=== PATIENT | female | born 1985 | race Caucasian/White ===

== ENCOUNTER 2018-01-29 16:20 | Emergency (ER) | payer SELFPAY ==
[~2018-01-29] VITALS: Ht 162.6 cm; Wt 108.9 kg
[2018-01-29 16:38] VITALS: BP 147/74
[2018-01-29 17:05] LABS: BASO # 0.1 x10^3/uL (0.0-0.2); BASO % 1 % (0-3); EOS # 0.1 x10^3/uL (0.0-0.7); EOS % 1 % (0-3); HEMATOCRIT 42.7 % (36.0-47.0); HEMOGLOBIN 14.4 g/dL (12.0-15.5); LYMPH # 2.6 x10^3/uL (1.0-4.8); LYMPH % 24 % (24-48); MEAN CORPUSCULAR HEMOGLOBIN 29 pg (25-35); MEAN CORPUSCULAR HGB CONC 34 g/dL (31-37); MEAN CORPUSCULAR VOLUME 86 fL (79-100); MONO # 0.8 x10^3/uL (0.0-1.1); MONO % 7 % (0-9); NEUT # 7.5 x10^3uL (1.8-7.7); NEUT % 68 % (31-73); PLATELET COUNT 269 x10^3/uL (140-400); RED BLOOD COUNT 4.98 x10^6/uL (3.50-5.40); RED CELL DISTRIBUTION WIDTH 14.5 % (11.5-14.5); WHITE BLOOD COUNT 11.1 x10^3/uL (4.0-11.0)
[2018-01-29 17:19] LABS: ALBUMIN 3.5 g/dL (3.4-5.0); ALBUMIN/GLOBULIN RATIO 0.9 (1.0-1.7); CALCIUM 8.9 mg/dL (8.5-10.1); CREATININE 0.7 mg/dL (0.6-1.0); POTASSIUM 3.4 mmol/L (3.5-5.1); TOTAL BILIRUBIN 0.3 mg/dL (0.2-1.0); TOTAL PROTEIN 7.3 g/dL (6.4-8.2)
--- NOTE | 2018-01-29 18:28 | PHYS DOC ---
Past History Past Medical History: Bipolar, Depression Past Surgical History: Cholecystectomy Alcohol Use: Occasionally Drug Use: Marijuana Adult General Chief Complaint Chief Complaint: DIZZY/LIGHT HEADED HPI HPI Patient is a 32-year-old female presenting with lightheadedness as well as frequent diarrhea and occasional blood in her stool. Apparently today at work she was feeling dizzy and lightheaded she did have some blood in her stool she said there were some red blood on the toilet paper as well as some blood, mixed in with some brown stool. She does have chronic diarrhea ever since a call bladder surgery several years back. She does have intermittent abdominal cramping as well. Review of Systems Review of Systems Constitutional: hpi no fever Eyes: Denies change in visual acuity, redness, or eye pain [] HENT: Denies nasal congestion or sore throat [] No chest pain no shortness of breath. : Denies dysuria or hematuria [] Musculoskeletal: Denies back pain or joint pain [] Integument: Denies rash or skin lesions [] Neurologic: Denies headache, focal weakness or sensory changes [] Endocrine: Denies polyuria or polydipsia [] All other systems were reviewed and found to be within normal limits, except as documented in this note. Physical Exam Physical Exam Constitutional: Well developed, well nourished, no acute distress, non-toxic appearance. [] HENT: Normocephalic, atraumatic, bilateral external ears normal, oropharynx moist, no oral exudates, nose normal. [] Eyes: PERRLA, EOMI, conjunctiva normal, no discharge. [] Neck: Normal range of motion, no tenderness, supple, no stridor. [] Cardiovascular:Heart rate regular rhythm, no murmur [] Lungs & Thorax: Bilateral breath sounds clear to auscultation [] Abdomen: Bowel sounds normal, soft, mild epigastric tenderness, no masses, no pulsatile masses. [] Patient refuses rectal examination Skin: Warm, dry, no erythema, no rash. [] Back: No tenderness, no CVA tenderness. [] Extremities: No tenderness, no cyanosis, no clubbing, ROM intact, no edema. [] Neurologic: Alert and oriented X 3, normal motor function, normal sensory function, no focal deficits noted. [] Psychologic: Affect normal, judgement normal, mood normal. [] Current Patient Data Vital Signs Vital Signs Date Time Temp Pulse Resp B/P (MAP) Pulse Ox O2 Delivery O2 Flow Rate FiO2 01/29/18 16:38 98.5 96 18 97 Room Air Lab Results Laboratory Tests Test 01/29/18 16:50 White Blood Count 11.1 x10^3/uL (4.0-11.0) H Red Blood Count 4.98 x10^6/uL (3.50-5.40) Hemoglobin 14.4 g/dL (12.0-15.5) Hematocrit 42.7 % (36.0-47.0) Mean Corpuscular Volume 86 fL (79-100) Mean Corpuscular Hemoglobin 29 pg (25-35) Mean Corpuscular Hemoglobin Concent 34 g/dL (31-37) Red Cell Distribution Width 14.5 % (11.5-14.5) Platelet Count 269 x10^3/uL (140-400) Neutrophils (%) (Auto) 68 % (31-73) Lymphocytes (%) (Auto) 24 % (24-48) Monocytes (%) (Auto) 7 % (0-9) Eosinophils (%) (Auto) 1 % (0-3) Basophils (%) (Auto) 1 % (0-3) Neutrophils # (Auto) 7.5 x10^3uL (1.8-7.7) Lymphocytes # (Auto) 2.6 x10^3/uL (1.0-4.8) Monocytes # (Auto) 0.8 x10^3/uL (0.0-1.1) Eosinophils # (Auto) 0.1 x10^3/uL (0.0-0.7) Basophils # (Auto) 0.1 x10^3/uL (0.0-0.2) Maternal Serum HCG Beta Subunit < 1 mIU/mL (0-6) Sodium Level 137 mmol/L (136-145) Potassium Level 3.4 mmol/L (3.5-5.1) L Chloride Level 103 mmol/L (98-107) Carbon Dioxide Level 26 mmol/L (21-32) Anion Gap 7 (6-14) Blood Urea Nitrogen 10 mg/dL (7-20) Creatinine 0.7 mg/dL (0.6-1.0) Estimated GFR (Cockcroft-Gault) 97.0 BUN/Creatinine Ratio 14 (6-20) Glucose Level 90 mg/dL (70-99) Calcium Level 8.9 mg/dL (8.5-10.1) Total Bilirubin 0.3 mg/dL (0.2-1.0) Aspartate Amino Transferase (AST) 21 U/L (15-37) Alanine Aminotransferase (ALT) 32 U/L (14-59) Alkaline Phosphatase 91 U/L (46-116) Total Protein 7.3 g/dL (6.4-8.2) Albumin 3.5 g/dL (3.4-5.0) Albumin/Globulin Ratio 0.9 (1.0-1.7) L EKG EKG [] Radiology/Procedures Radiology/Procedures [] Course & Med Decision Making Course & Med Decision Making Pertinent Labs and Imaging studies reviewed. (See chart for details) []32-year-old fairly healthy female history of obesity status post cholecystectomy present with a complaint of some dizziness and lightheadedness in the setting of frequent diarrhea following a remote cholecystectomy and also so an episode of bright red blood per rectum today. Patient declined rectal examination differential would include most likely hemorrhoidal disease versus dietary intolerance. Labwork was unremarkable blood pressure was in the stable range patient was advised for blood pressure follow-up within 1 month. Patient was also advised on increasing fiber intake present the diagnosis of possible hemorrhoids because she did not did not want me to do a rectal examination. She was encouraged to follow up with primary care doctor for GI referral should the symptoms continue. Return precautions were advised and she voiced understanding of the instructions. Dragon Disclaimer Dragon Disclaimer This electronic medical record was generated, in whole or in part, using a voice recognition dictation system. Departure Departure: Impression: Primary Impression: Dizziness Disposition: HOME, SELF-CARE Condition: STABLE Patient Instructions: Rectal Bleeding, [id number] PUENET RODRIGUEZ MD Jan 29, 2018 18:28
== END 2018-01-29 18:13 | disposition home or self-care (01) ==
LOC: ER 16:20
DX: R42 Dizziness and giddiness (principal); R19.7 Diarrhea, unspecified; K92.1 Melena; F31.9 Bipolar disorder, unspecified; Z90.49 Acquired absence of other specified parts of digestive tract
CPT/HCPCS: 36415; 80053; 84702; 85025; 99284

== ENCOUNTER 2018-01-31 14:48 | Emergency (ER) | payer SELFPAY ==
[~2018-01-31] VITALS: Ht 162.6 cm; Wt 108.9 kg
[2018-01-31] MEDS ORDERED: KETOROLAC 60 MG/2 ML VIAL. IM ONE (15:15)
--- NOTE | 2018-01-31 15:21 | RAD ---
EXAM: Right foot, 3 views. HISTORY: Pain. COMPARISON: None. FINDINGS: Frontal, lateral and oblique views of the right foot are obtained. There is no fracture, dislocation or subluxation. There is a tiny plantar spur. There is a 3 mm benign osseous excrescence along the medial aspect of the second proximal phalanx. IMPRESSION: No acute osseous finding. Electronically signed by: Pat Alejandre MD (01/31/2018 3:18 PM) [facility] [place]
[2018-01-31] MEDS ORDERED: Percogesic PO (15:37)
--- NOTE | 2018-01-31 15:38 | PHYS DOC ---
Past History Past Medical History: Bipolar, Depression Past Surgical History: Cholecystectomy, Tonsillectomy, Tubal ligation Alcohol Use: Occasionally Drug Use: Marijuana Adult General Chief Complaint Chief Complaint: FOOT INJURY PAIN HPI HPI 32-year-old female patient states she had right foot fracture previously and just started a new job one week ago that has to walk frequently and complaining of right foot pain and swelling since yesterday that did not get better with taking [id number] Tylenol. Patient rated her pain 8/10 and denies focal neuro deficit and fever and chills. Review of Systems Review of Systems Constitutional: Denies fever or chills [] Eyes: Denies change in visual acuity, redness, or eye pain [] HENT: Denies nasal congestion or sore throat [] Respiratory: Denies cough or shortness of breath [] Cardiovascular: No additional information not addressed in HPI [] GI: Denies abdominal pain, nausea, vomiting, bloody stools or diarrhea [] : Denies dysuria or hematuria [] Musculoskeletal: Denies back pain, reports joint pain [] Integument: Denies rash or skin lesions [] Neurologic: Denies headache, focal weakness or sensory changes [] Endocrine: Denies polyuria or polydipsia [] All other systems were reviewed and found to be within normal limits, except as documented in this note. Current Medications Current Medications Current Medications Medications (Trade) Dose Ordered Sig/Pantera Start Time Stop Time Status Last Admin Dose Admin Ketorolac Tromethamine (Toradol Im) 60 mg 1X ONCE 01/31/18 15:15 01/31/18 15:16 DC 01/31/18 15:28 60 MG Allergies Allergies Allergies Coded Allergies Type Severity Reaction Last Updated Verified ibuprofen Allergy Unknown 01/31/18 Yes Physical Exam Physical Exam Constitutional: Well nourished, no acute distress, non-toxic appearance. [] HENT: Normocephalic, atraumatic Eyes: PERRLA, EOMI, conjunctiva normal, no discharge. [] Neck: Normal range of motion, no tenderness, supple, no stridor. [] Cardiovascular:Heart rate regular rhythm, no murmur [] Lungs & Thorax: Bilateral breath sounds clear to auscultation [] Extremities: Left foot without deformity or sign of injury, mild tenderness and edema of proximal 2nd and 3rd metatarsal area , no cyanosis, no clubbing.] Neurologic: Alert and oriented X 3, normal motor function, normal sensory function, no focal deficits noted. [] Psychologic: Affect anxious, judgement normal, mood normal. [] Current Patient Data Vital Signs Vital Signs Date Time Temp Pulse Resp B/P (MAP) Pulse Ox O2 Delivery O2 Flow Rate FiO2 01/31/18 15:00 98.1 102 18 98 Room Air EKG EKG [] Radiology/Procedures Radiology/Procedures [[address] [address] IMAGING REPORT Signed PATIENT: UCHE MAN ACCOUNT: [id number] : 1985 LOCATION: ER AGE: 32 SEX: F EXAM STATUS: PRE ER ORD. PHYSICIAN: ISRAEL ACEVEDO MD REASON: pain, no injury PROCEDURE: FOOT RIGHT 3V EXAM: Right foot, 3 views. HISTORY: Pain. COMPARISON: None. FINDINGS: Frontal, lateral and oblique views of the right foot are obtained. There is no fracture, dislocation or subluxation. There is a tiny plantar spur. There is a 3 mm benign osseous excrescence along the medial aspect of the second proximal phalanx. IMPRESSION: No acute osseous finding. Electronically signed by: Pat Alejandre MD (01/31/2018 3:18 PM) [facility] [place] DICTATED AND SIGNED BY: PAT ALEJANDRE MD DATE: 01/31/18 8354 CC: ISRAEL ACEVEDO MD; PCP,NO ~ ] Course & Med Decision Making Course & Med Decision Making Pertinent Imaging studies reviewed. (See chart for details) Jonatan wrap applied by [employer] . [] Dragon Disclaimer Dragon Disclaimer This electronic medical record was generated, in whole or in part, using a voice recognition dictation system. Departure Departure: Impression: Primary Impression: Right foot sprain Additional Impressions: Tobacco abuse counseling Tobacco abuse Disposition: HOME, SELF-CARE (At 1533) Condition: IMPROVED Referrals: PCP,NO (PCP) Patient Instructions: Foot Sprain Additional Instructions: Apply ice on the affected area Follow-up with your primary care physician in 3-5 days Return to ER if not getting better Scripts [Percogesic] No Conflict Check 1 TAB PO QID PRN for PAIN, #14 Prov: ISRAEL ACEVEDO MD 01/31/18 Problem Qualifiers ISRAEL ACEVEDO MD Jan 31, 2018 15:38
[2018-01-31 15:40] VITALS: BP 123/73
== END 2018-01-31 15:42 | disposition home or self-care (01) ==
LOC: ER 14:48
DX: S93.601A Unspecified sprain of right foot, initial encounter (principal); F31.9 Bipolar disorder, unspecified; Z72.0 Tobacco use; Z71.6 Tobacco abuse counseling; Z88.6 Allergy status to analgesic agent; X50.9XXA Other and unspecified overexertion or strenuous movements or postures, initial encounter; Y93.01 Activity, walking, marching and hiking; Y99.8 Other external cause status; Y92.89 Other specified places as the place of occurrence of the external cause
CPT/HCPCS: 73630; 96372; 99284; J1885

== ENCOUNTER 2018-04-08 16:36 | Emergency (ER) | payer SELFPAY ==
[~2018-04-08] VITALS: Ht 162.6 cm; Wt 108.9 kg
[~2018-04-08 16:36] MED LIST: Percogesic PO
[2018-04-08 16:50] VITALS: BP 123/66
[2018-04-08] MEDS ORDERED: HYDROcodone/APAP 5/325MG 1 TAB TABLET PO ONE (18:00)
[2018-04-08] MEDS ORDERED: DIPHTH,PERTUSS(ACELL),TET TOX 0.5 ML DISP.SYRIN. VAX IM ONE (18:00)
[2018-04-08] MEDS ORDERED: ACET-704 PO (18:24)
[2018-04-08] MEDS ORDERED: SILV20CR14 TP (18:24)
--- NOTE | 2018-04-08 18:24 | PHYS DOC ---
Past History Past Medical History: Bipolar, Depression Past Surgical History: Cholecystectomy, Tonsillectomy, Tubal ligation Alcohol Use: Occasionally Drug Use: Marijuana Adult General Chief Complaint Chief Complaint: BURN/SMOKE INHALATION HPI HPI Patient is a 32-year-old female patient with complaining of burn to left forearm And 5 days ago and had pain and did not in affected area and called Nurse line and recommended coming to emergency room. Patient denies fever and chills, focal neuro deficit. Patient is not up-to-date with tetanus immunization Review of Systems Review of Systems Constitutional: Denies fever or chills [] Eyes: Denies change in visual acuity, redness, or eye pain [] HENT: Denies nasal congestion or sore throat [] Respiratory: Denies cough or shortness of breath [] Cardiovascular: No additional information not addressed in HPI [] GI: Denies abdominal pain, nausea, vomiting, bloody stools or diarrhea [] : Denies dysuria or hematuria [] Musculoskeletal: Denies back pain or joint pain [] Integument: Denies rash or skin lesions [] Neurologic: Denies headache, focal weakness or sensory changes [] Endocrine: Denies polyuria or polydipsia [] All other systems were reviewed and found to be within normal limits, except as documented in this note. Current Medications Current Medications Current Medications Medications (Trade) Dose Ordered Sig/Pantera Start Time Stop Time Status Last Admin Dose Admin Acetaminophen/ Hydrocodone Bitart (Lortab 5/325) 1 tab 1X ONCE 04/08/18 18:00 04/08/18 18:01 DC 04/08/18 18:00 1 TAB Diphtheria/ Tetanus/Acell Pertussis (Boostrix) 0.5 ml ONCE ONCE 04/08/18 18:00 04/08/18 18:01 DC 04/08/18 18:03 0.5 ML Allergies Allergies Allergies Coded Allergies Type Severity Reaction Last Updated Verified ibuprofen Allergy Unknown 01/31/18 Yes Physical Exam Physical Exam Constitutional: Well developed, well nourished, no acute distress, non-toxic appearance. [] HENT: Normocephalic, atraumatic Eyes: PERRLA, EOMI, conjunctiva normal, no discharge. [] Neck: Normal range of motion, no tenderness, supple, no stridor. [] Cardiovascular:Heart rate regular rhythm, no murmur [] Lungs & Thorax: Bilateral breath sounds clear to auscultation [] Skin: Warm, dry, no rash, 5 x 5 cm second degree burn to left forearm without sign of infection or palpated mass or abscess. [] Back: No tenderness, no CVA tenderness. [] Extremities: No tenderness, no cyanosis, no clubbing, ROM intact, no edema. [] Neurologic: Alert and oriented X 3, normal motor function, normal sensory function, no focal deficits noted. [] Current Patient Data Vital Signs Vital Signs Date Time Temp Pulse Resp B/P (MAP) Pulse Ox O2 Delivery O2 Flow Rate FiO2 04/08/18 18:00 16 EKG EKG [] Radiology/Procedures Radiology/Procedures [] Course & Med Decision Making Course & Med Decision Making discharge: I've spoken with the patient and/or caregivers. I've explained the patient's condition, diagnosis and treatment plan based on information available to me at this time. I've answered the patient's and/or caregivers questions and addressed any concerns. The patient and/or caregivers have a good understanding the patient's diagnosis, condition and treatment plan as can be expected at this point. Vital signs have been stabilized. The patient's condition is stable for discharge from the emergency department. The patient will pursue further outpatient evaluation with her primary care provider or other designated consulting physician as outlined in the discharge instructions. Patient and/or caregivers are agreeable to this plan of care and follow-up instructions have been explained in detail. The patient and/or caregivers have received these instructions in written format and expressed understanding of these discharge instructions. The patient and her caregivers are aware that if any significant change in condition or worsening of symptoms should prompt him to immediately return to this of the closest emergency department. If an emergent department is not readily available I would encourage him to call 911. Denisha Disclaimer Dragon Disclaimer This electronic medical record was generated, in whole or in part, using a voice recognition dictation system. Departure Departure: Impression: Primary Impression: Second degree burn of arm Disposition: HOME, SELF-CARE (at 1822) Condition: STABLE Referrals: PCP,NO (PCP) Patient Instructions: Burn Care, [id number] Scripts Acetaminophen With Codeine (TYLENOL WITH CODEINE #3 TABLET) 1 Each Tablet 1 TAB PO BID, #6 TAB Prov: ISRAEL ACEVEDO MD 04/08/18 Silver Sulfadiazine (SILVADENE) 20 Gm Cream..g. 1 BRENNON TP DAILY, #50 GM Prov: ISRAEL ACEVEDO MD 04/08/18 ISRAEL ACEVEDO MD Apr 08, 2018 18:24
== END 2018-04-08 18:30 | disposition home or self-care (01) ==
LOC: ER 16:36
DX: T22.212A Burn of second degree of left forearm, initial encounter (principal); Z88.6 Allergy status to analgesic agent; X19.XXXA Contact with other heat and hot substances, initial encounter; Y93.89 Activity, other specified; Y92.89 Other specified places as the place of occurrence of the external cause; Y99.0 Civilian activity done for income or pay
CPT/HCPCS: 90471; 90715; 99283-25

== ENCOUNTER 2018-04-22 00:04 | Emergency (ER) | payer SELFPAY ==
[~2018-04-22] VITALS: Ht 162.6 cm; Wt 99.8 kg
[2018-04-22 00:04] VITALS: BP 122/71
[~2018-04-22 00:04] MED LIST changes: +ACET-704 PO; +SILV20CR14 TP
--- NOTE | 2018-04-22 00:32 | ED.ADGEN ---
Past History Past Medical History: No Pertinent History, Bipolar, Depression Past Surgical History: Cholecystectomy, , Tonsillectomy, Tubal ligation Alcohol Use: Occasionally Drug Use: Marijuana Adult General Chief Complaint Chief Complaint right hand pain [facility] This is a very pleasant 32 years old female who presented to the emergency department with right thumb pain after a fall that happened a week ago she was seen and evaluated by another facility x-rays was done she was told she had she does not have any fracture and it's just the finger sprain hand was placed in thumb spica she was advised to follow-up with orthopedic surgery patient is here in the emergency department complaining of her hands not any better and wondered whether there is any fracture. Review of Systems Review of Systems Constitutional: Denies fever or chills [] Eyes: Denies change in visual acuity, redness, or eye pain [] HENT: Denies nasal congestion or sore throat [] Respiratory: Denies cough or shortness of breath [] Cardiovascular: No additional information not addressed in HPI [] GI: Denies abdominal pain, nausea, vomiting, bloody stools or diarrhea [] : Denies dysuria or hematuria [][] Integument: Denies rash or skin lesions [] Neurologic: Denies headache, focal weakness or sensory changes [] Endocrine: Denies polyuria or polydipsia [] All other systems were reviewed and found to be within normal limits, except as documented in this note. Allergies Allergies Allergies Coded Allergies Type Severity Reaction Last Updated Verified ibuprofen Allergy Unknown 01/31/18 Yes Physical Exam Physical Exam Constitutional: Well developed, well nourished, no acute distress, non-toxic appearance. [] HENT: Normocephalic, atraumatic, bilateral external ears normal, oropharynx moist, no oral exudates, nose normal. [] Eyes: PERRLA, EOMI, conjunctiva normal, no discharge. [] Neck: Normal range of motion, no tenderness, supple, no stridor. [] Cardiovascular:Heart rate regular rhythm, no murmur [] Lungs & Thorax: Bilateral breath sounds clear to auscultation [] Abdomen: Bowel sounds normal, soft, no tenderness, no masses, no pulsatile masses. [] Skin: Warm, dry, no erythema, no rash. [] Back: No tenderness, no CVA tenderness. [] Extremities: Tender right thumb limited movement minimal swelling[] Neurologic: Alert and oriented X 3, normal motor function, normal sensory function, no focal deficits noted. [] Psychologic: Affect normal, judgement normal, mood normal. [] Current Patient Data Vital Signs Vital Signs Date Time Temp Pulse Resp B/P (MAP) Pulse Ox O2 Delivery O2 Flow Rate FiO2 04/22/18 00:04 98.4 111 20 96 EKG EKG [] Radiology/Procedures Radiology/Procedures no fracture[] Course & Med Decision Making Course & Med Decision Making Pertinent Labs and Imaging studies reviewed. (See chart for details) [] Final Impression Final Impression I did very lengthy discussion with the patient regarding her diagnoses advised the patient follow up with hand surgery advised her to keep wearing the splint thumb spica also advised her to keep taking ibuprofen for pain management. [] Problems: (1) Sprain of right thumb Qualifiers: Dragon Disclaimer Dragon Disclaimer This electronic medical record was generated, in whole or in part, using a voice recognition dictation system. MACKENZIE MILTON MD Apr 22, 2018 00:32
--- NOTE | 2018-04-22 02:31 | RAD ---
Right hand 3 views: Reason for examination: Fell with pain and swelling. No acute fracture or dislocation is seen. The bone density is normal. There appears to be some bony hypertrophy at the base of the distal phalanx at the distal interphalangeal joint of the middle finger. No abnormal periosteal reaction is seen. Joint spaces are maintained. IMPRESSION: No acute bony abnormality in the right hand. Electronically signed by: Amara Rocha MD (04/22/2018 2:28 AM) [facility] [place]
== END 2018-04-22 00:50 | disposition home or self-care (01) ==
LOC: ER 00:04
DX: S63.601A Unspecified sprain of right thumb, initial encounter (principal); Z88.6 Allergy status to analgesic agent; W19.XXXA Unspecified fall, initial encounter; Y93.89 Activity, other specified; Y92.89 Other specified places as the place of occurrence of the external cause; Y99.8 Other external cause status
CPT/HCPCS: 73130; 99284

== ENCOUNTER 2020-02-08 16:53 | Emergency (ER) | payer SELFPAY ==
[~2020-02-08] VITALS: Ht 162.6 cm; Wt 100.0 kg
--- NOTE | 2020-02-08 17:29 | PHYS DOC ---
Past History Past Medical History: No Pertinent History Past Surgical History: Tonsillectomy, Tubal ligation Additional Past Surgical Histo: hernia repair Alcohol Use: Occasionally Drug Use: Marijuana General Adult EDM: Chief Complaint: ABDOMINAL PAIN HPI: HPI: The history was obtained from the patient. Patient is a 34-year-old female with PMH tubal ligation, tobacco abuse who presents with a chief complaint of suprapubic abdominal pain. Patient states the pain began gradually 4 hours prior to arrival. States she was walking in the grocery store the pain began. States pain is sharp in nature and seems to be progressively worsening. States is located in her suprapubic region. States pain is nonradiating. She denies any nausea or vomiting. She denies any vaginal bleeding or discharge. States first it was worse. 2 weeks ago. She has a history of tubal ligation denies any history of ovarian cyst. She denies any dysuria or hematuria. She notes surgical history of abdominal ventral hernia repairs in the past. She denies any changes to her stool caliber or consistency. She denies any syncope. Tylenol at home with minimal relief. No other complaints. Review of Systems: Review of Systems: Constitutional: Denies fever or chills Eyes: Denies change in visual acuity HENT: Denies nasal congestion or sore throat Respiratory: Denies cough or shortness of breath Cardiovascular: Denies chest pain or edema GI: Positive for abdominal pain : Denies dysuria Musculoskeletal: Denies back pain or joint pain Integument: Denies rash Neurologic: Denies headache, focal weakness or sensory changes Endocrine: Denies polyuria or polydipsia Lymphatic: Denies swollen glands Psychiatric: Denies depression or anxiety Heart Score: Risk Factors: Risk Factors: DM, Current or recent (<one month) smoker, HTN, HLP, family history of CAD, obesity. Risk Scores: Score 0 - 3: 2.5% MACE over next 6 weeks - Discharge Home Score 4 - 6: 20.3% MACE over next 6 weeks - Admit for Clinical Observation Score 7 - 10: 72.7% MACE over next 6 weeks - Early Invasive Strategies Allergies: Allergies: Allergies Coded Allergies Type Severity Reaction Last Updated Verified ibuprofen Allergy Unknown 02/08/20 Yes Physical Exam: PE: Constitutional: Well developed, well nourished, no acute distress, non-toxic appearance. [] HENT: Normocephalic, atraumatic, bilateral external ears normal, oropharynx moist, nose normal. [] Eyes: PERRLA, EOMI, conjunctiva normal, no discharge. [] Neck: Normal range of motion, no tenderness, supple, no stridor. [] Cardiovascular: Heart rate regular rhythm, no murmur [] Lungs & Thorax: Bilateral breath sounds clear to auscultation [] Abdomen: Soft, nontender, nonacute abdomen. No involuntary guarding or rigidity noted. No acute peritonitis. Skin: Warm, dry, no erythema, no rash. [] Back: No tenderness, no CVA tenderness. [] Extremities: No tenderness, no cyanosis, no clubbing, ROM intact, no edema. [] Neurologic: Alert and oriented X 3, normal motor function, normal sensory function, no focal deficits noted. [] Psychologic: Affect normal, judgement normal, mood normal. [] Current Patient Data: Labs: Laboratory Tests Test 02/08/20 17:10 White Blood Count 11.3 x10^3/uL Red Blood Count 4.77 x10^6/uL Hemoglobin 14.0 g/dL Hematocrit 41.4 % Mean Corpuscular Volume 87 fL Mean Corpuscular Hemoglobin 29 pg Mean Corpuscular Hemoglobin Concent 34 g/dL Red Cell Distribution Width 14.0 % Platelet Count 262 x10^3/uL Neutrophils (%) (Auto) 58 % Lymphocytes (%) (Auto) 33 % Monocytes (%) (Auto) 7 % Eosinophils (%) (Auto) 1 % Basophils (%) (Auto) 1 % Neutrophils # (Auto) 6.6 x10^3uL Lymphocytes # (Auto) 3.7 x10^3/uL Monocytes # (Auto) 0.8 x10^3/uL Eosinophils # (Auto) 0.1 x10^3/uL Basophils # (Auto) 0.1 x10^3/uL Urine Collection Type Unknown Urine Color Yellow Urine Clarity Hazy Urine pH 6.5 Urine Specific [place] >=1.030 Urine Protein Neg Urine Glucose (UA) Neg mg/dL Urine Ketones (Stick) Neg mg/dL Urine Blood Neg Urine Nitrite Neg Urine Bilirubin Neg Urine Urobilinogen Dipstick 0.2 mg/dL Urine Leukocyte Esterase Neg Urine RBC 3-5 /HPF Urine WBC 5-10 /HPF Urine Squamous Epithelial Cells Many /LPF Urine Bacteria Few /HPF Urine Mucus Mod /LPF Urine Test Negative Sodium Level 137 mmol/L Potassium Level 3.5 mmol/L Chloride Level 101 mmol/L Carbon Dioxide Level 29 mmol/L Anion Gap 7 Blood Urea Nitrogen 7 mg/dL Creatinine 1.0 mg/dL Estimated GFR (Cockcroft-Gault) 63.5 BUN/Creatinine Ratio 7 Glucose Level 89 mg/dL Calcium Level 8.7 mg/dL Total Bilirubin 0.2 mg/dL Aspartate Amino Transf (AST/SGOT) 18 U/L Alanine Aminotransferase (ALT/SGPT) 32 U/L Alkaline Phosphatase 87 U/L Total Protein 7.7 g/dL Albumin 3.5 g/dL Albumin/Globulin Ratio 0.8 Lipase 139 U/L Current Medications Medications (Trade) Dose Ordered Sig/Pantera Route PRN Reason Start Time Stop Time Status Last Admin Dose Admin Morphine Sulfate (Morphine 4mg Syringe) 4 mg 1X ONCE IV 02/08/20 17:30 02/08/20 17:31 DC 02/08/20 17:43 Vital Signs: Vital Signs Date Time Temp Pulse Resp B/P (MAP) Pulse Ox O2 Delivery O2 Flow Rate FiO2 02/08/20 18:39 94 16 139/88 (105) 98 Room Air 02/08/20 17:43 16 98 Room Air 02/08/20 16:53 98.3 111 16 119/66 (83) 97 Room Air Vital Signs Date Time Temp Pulse Resp B/P (MAP) Pulse Ox O2 Delivery O2 Flow Rate FiO2 02/08/20 16:53 98.3 111 16 119/66 (83) 97 Room Air EKG: EKG: [] Radiology/Procedures: Radiology/Procedures: [][address] [address] IMAGING REPORT Signed PATIENT: UCHE MAN ACCOUNT: [id number] : 1985 LOCATION: ER AGE: 34 SEX: F EXAM STATUS: REG ER ORD. PHYSICIAN: BIN COLIN DO REASON: suprapubic pain. eval for torsion vs. cyst PROCEDURE: PELVIS COMPLETE PELVIS COMPLETE History: Reason: suprapubic pain. eval for torsion vs. cyst / Spl. Instructions: / History: Comparison: None. Technique: Grayscale and color Doppler imaging of the pelvis was performed using transabdominal technique. Findings: The uterus measures 8.5 x 5.3 x 4.6 cm. Uterus has an unremarkable appearance. The endometrial stripe measures 6.5 mm. Right ovary measures 2.6 x 2.6 x 1.9 cm. Left ovary measures 2.2 x 2.6 x 1.9 cm. Normal Doppler flow to the ovaries. No adnexal masses are seen. IMPRESSION: 1. Unremarkable pelvic ultrasound. Electronically signed by: Robert Arnold DO (02/08/2020 6:40 PM) [facility] DICTATED AND SIGNED BY: ROBERT ARNOLD DO DATE: 02/08/201839 CC: SHELBY CARRANZA; BIN COLIN DO ~ Course & Med Decision Making: Course & Med Decision Making Pertinent Labs and Imaging studies reviewed. (See chart for details) Patient is a well-appearing 34-year-old female who presents with chief complaint of suprapubic abdominal cramping. Initial vital signs notable for mild tachycardia. Laboratory analysis was obtained and was grossly unremarkable. Mild leukocytosis at 11,000. Urinalysis does not show nell evidence of infection. Remainder of labs unremarkable. Transabdominal ultrasound was obtained and showed no signs of ovarian torsion or ovarian cyst. Pelvic exam was deferred given she denies any vaginal bleeding or discharge. Repeat abdominal examination her abdomen remains benign. Vital signs have improved. She remains afebrile and is tolerating p.o. in the emergency department. I do feel is reasonable to defer CAT scan imaging at this time. Patient is agreeable to this. She was given strict 24 to 48-hour return precautions. She was in structed to follow-up with her primary care physician in the next 2 to 3 days. She will be discharged home with Bentyl and Zofran. Stable for discharge home. Denisha Disclaimer: Denisha Disclaimer: This electronic medical record was generated, in whole or in part, using a voice recognition dictation system. Departure Departure: Disposition: 01 HOME/RESIDENCE PRIOR TO ADM Condition: GOOD Referrals: PCP,SHELBY (PCP) Patient Instructions: Abdominal Pain Additional Instructions: Please return emergency department 24 to 48 hours if her symptoms do not improve or worsen. Please follow-up with your primary care physician in the next 2 to 3 days. Scripts Dicyclomine Hcl (DICYCLOMINE HCL) 10 Mg Capsule 1 CAP PO TID PRN for PAIN, #16 CAP 0 Refills Prov: BIN COLIN DO 02/08/20 Ondansetron Hcl (ZOFRAN) 8 Mg Tablet 4 MG PO TID PRN PRN for NAUSEA, #9 TAB Prov: BIN COLIN DO 02/08/20 Justification of Admission: Justification of Admission: Justification of Admission Dx: N/A BIN COLIN DO Feb 08, 2020 17:29
[2020-02-08] MEDS ORDERED: MORPHINE SULFATE 4 MG/ML DISP.SYRIN. IV ONE (17:30)
[2020-02-08 17:31] LABS: BASO # 0.1 x10^3/uL (0.0-0.2); BASO % 1 % (0-3); EOS # 0.1 x10^3/uL (0.0-0.7); EOS % 1 % (0-3); HEMATOCRIT 41.4 % (36.0-47.0); LYMPH # 3.7 x10^3/uL (1.0-4.8); LYMPH % 33 % (24-48); MEAN CORPUSCULAR HEMOGLOBIN 29 pg (25-35); MEAN CORPUSCULAR HGB CONC 34 g/dL (31-37); MEAN CORPUSCULAR VOLUME 87 fL (79-100); MONO # 0.8 x10^3/uL (0.0-1.1); MONO % 7 % (0-9); NEUT # 6.6 x10^3uL (1.8-7.7); NEUT % 58 % (31-73); PLATELET COUNT 262 x10^3/uL (140-400); RED BLOOD COUNT 4.77 x10^6/uL (3.50-5.40); WHITE BLOOD COUNT 11.3 x10^3/uL (4.0-11.0)
[2020-02-08 17:37] LABS: CALCIUM 8.7 mg/dL (8.5-10.1); GFR 63.5; POTASSIUM 3.5 mmol/L (3.5-5.1)
[2020-02-08 17:43] LABS: ALBUMIN 3.5 g/dL (3.4-5.0); ALBUMIN/GLOBULIN RATIO 0.8 (1.0-1.7); TOTAL BILIRUBIN 0.2 mg/dL (0.2-1.0); TOTAL PROTEIN 7.7 g/dL (6.4-8.2)
[2020-02-08 17:51] LABS: U PREG PATIENT NEGATIVE (NEG)
[2020-02-08 18:05] LABS: BACTERIA,URINE FEW /HPF (0-FEW); BILIRUBIN,URINE NEG (NEG); CLARITY,URINE HAZY; COLOR,URINE YELLOW; GLUCOSE,URINE NEG (NEG); NITRITE,URINE NEG (NEG); UROBILINOGEN,URINE 0.2 mg/dL (0.2 mg/dL)
[2020-02-08 18:06] LABS: SQUAMOUS EPITHELIAL CELL,UR MANY /LPF
[2020-02-08 18:39] VITALS: BP 139/88
--- NOTE | 2020-02-08 18:43 | RAD ---
PELVIS COMPLETE History: Reason: suprapubic pain. eval for torsion vs. cyst / Spl. Instructions: / History: Comparison: None. Technique: Grayscale and color Doppler imaging of the pelvis was performed using transabdominal technique. Findings: The uterus measures 8.5 x 5.3 x 4.6 cm. Uterus has an unremarkable appearance. The endometrial stripe measures 6.5 mm. Right ovary measures 2.6 x 2.6 x 1.9 cm. Left ovary measures 2.2 x 2.6 x 1.9 cm. Normal Doppler flow to the ovaries. No adnexal masses are seen. IMPRESSION: 1. Unremarkable pelvic ultrasound. Electronically signed by: Robert Arnold DO (02/08/2020 6:40 PM) [facility]
[2020-02-08] MEDS ORDERED: ONDA8TAB9 PO (18:59)
[2020-02-08] MEDS ORDERED: DICY10CA3 PO (18:59)
== END 2020-02-08 19:15 | disposition home or self-care (01) ==
LOC: ER 16:53
DX: R10.30 Lower abdominal pain, unspecified (principal); Z98.51 Tubal ligation status; Z72.0 Tobacco use; Z88.6 Allergy status to analgesic agent
CPT/HCPCS: 36415; 76856; 80053; 81001; 81025; 83690; 85025; 87086; 96374; 99284; J2270

== ENCOUNTER 2020-04-01 22:01 | Inpatient (IN) | payer SELFPAY ==
[~2020-04-01] VITALS: Ht 162.6 cm; Wt 104.6 kg
[~2020-04-01 22:01] MED LIST changes: +DICY10CA3 PO; +ONDA8TAB9 PO
--- NOTE | 2020-04-01 22:07 | PHYS DOC ---
Past History Past Medical History: No Pertinent History, Alcoholism, Bipolar, Depression Past Surgical History: Tonsillectomy, Tubal ligation Additional Past Surgical Histo: hernia repair Alcohol Use: Occasionally Drug Use: Marijuana General Adult HPI: HPI: ". I just wanted to kill myself.. man problems.. bill problems.. I just fucking tired of shit.. so I over dosed.. " " I just want to end it all.. I took all my meds.. and then drank a pint of hue... " " Fuck it...." Patient is a 34 year old female who presents with above hx and attempt suicide by taking gabapentin 300 x 15-20 tablets and Venlafaxine 75 mg x 15 -20 tabletes. HOLGER Clay and Giulia Murray are prescribers of her medicines. Pt. normally follows at [facility]. Pt. has hx of depression and previous OD or Suicide attempts x 2 with over dosages of ASA, Tylenol, Percocet and Alcohol. 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 Review of Systems: Review of Systems: Constitutional: Denies fever or chills Eyes: Denies change in visual acuity HENT: Denies nasal congestion or sore throat Respiratory: Denies cough or shortness of breath Cardiovascular: Denies chest pain or edema GI: Denies abdominal pain, nausea, vomiting, bloody stools or diarrhea : Denies dysuria Musculoskeletal: Denies back pain or joint pain Integument: Denies rash Neurologic: Denies headache, focal weakness or sensory changes Endocrine: Denies polyuria or polydipsia Lymphatic: Denies swollen glands Psychiatric: Complains of suicidal ideation, depression and anxiety Heart Score: HEART Score for Chest Pain: HEART Score for Chest Pain Response (Comments) Value History Moderately Suspicious 1 ECG Nonspecific Repolarizatio 1 Age < 45 0 Risk Factors 1 or 2 Risk Factors 1 Total 3 Risk Factors: Risk Factors: DM, Current or recent (<one month) smoker, HTN, HLP, family history of CAD, obesity. Risk Scores: Score 0 - 3: 2.5% MACE over next 6 weeks - Discharge Home Score 4 - 6: 20.3% MACE over next 6 weeks - Admit for Clinical Observation Score 7 - 10: 72.7% MACE over next 6 weeks - Early Invasive Strategies Family History: Family History: There is a family history of depression Current Medications: Current Meds: See nursing for home meds Allergies: Allergies: Allergies Coded Allergies Type Severity Reaction Last Updated Verified ibuprofen Allergy Unknown 02/08/20 Yes Physical Exam: PE: Constitutional: no acute distress, oversedated and appearance. [] HENT: Normocephalic, atraumatic, bilateral external ears normal, oropharynx moist, no oral exudates, nose normal. [] Eyes: PERRLA, EOMI, conjunctiva normal, no discharge. Glasses Neck: Normal range of motion, no tenderness, supple, no stridor. [] Cardiovascular: Tachycardia heart rate regular rhythm, no murmur [] Lungs & Thorax: Bilateral breath sounds clear to auscultation [] Abdomen: Bowel sounds decreased, soft, no tenderness, no masses, no pulsatile masses. [] Obese. Old surgery scar Skin: Warm, dry, no erythema, no rash. [] Back: No tenderness, no CVA tenderness. [] Extremities: No tenderness, no cyanosis, no clubbing, ROM intact, no edema. [] Neurologic: Alert and oriented X 3, moves all extremities on request. Has distal sensory, no focal deficits noted. [] Psychologic: Affect tearful, angry, mood depressed. Complaining of suicidal ideation EKG: EKG: My interpretation of EKG shows a sinus tachycardia 109 bpm. There is some left axis deviation. There is a fascicular block. No findings of acute STEMI with contralateral changes []2208 04/01/20 My interpretation EKG #2 shows a sinus rhythm at 89 bpm. Sinus rhythm. Left axis. Time 0005 04-02-2020 Radiology/Procedures: Radiology/Procedures: [][address] [address] IMAGING REPORT Signed PATIENT: UCHE MAN ACCOUNT: [id number] : 1985 LOCATION: ER AGE: 34 SEX: F EXAM STATUS: REG ER ORD. PHYSICIAN: LINK MONTOYA MD REASON: od, H/O SMOKING PROCEDURE: PORTABLE CHEST 1V INDICATION: Reason: od, H/O SMOKING / Spl. Instructions: / History: COMPARISON: October 2005 FINDINGS: Single view of chest obtained. Hypoexpanded examination. Mild haziness at the lung bases. Cardiac silhouette is prominent in size but likely exaggerated by portable technique. IMPRESSION: * Hypoexpanded exam with mild hazy opacities at the lung bases which could be from atelectasis with infiltrate not excluded. * Cardiac silhouette prominent in size. Electronically signed by: Sary Silveira MD (04/01/2020 11:52 PM) [id number] DICTATED AND SIGNED BY: SARY SILVEIRA MD DATE: 04/01/20 5100 CC: LINK MONTOYA MD; PCP,NO ~ Course & Med Decision Making: Course & Med Decision Making Pertinent Labs and Imaging studies reviewed. (See chart for details) Poison Control advised prolonged observation, with EKG every hour to two.. Possible risk or respiratory compromise. Fluid boluses. Psych evaluation when patient stabilizes. Discussed presentation, testing and treatment plan with Dr. Pan- admit to ICU Critical care 90 min. Impression: 1. Suicidal ideation 2. Overdose of gabapentin and Wellbutrin 3. Alcohol abuse 4. History of bipolar and depression [] Dragon Disclaimer: Dragon Disclaimer: This electronic medical record was generated, in whole or in part, using a voice recognition dictation system. Departure Departure: Disposition: 01 HOME/RESIDENCE PRIOR TO ADM Condition: STABLE Referrals: PCP,NO (PCP) Justification of Admission: Justification of Admission: Justification of Admission Dx: Yes Comments: OD-gabapentin and Wellbutrin Dragon Disclaimer This chart was dictated in whole or in part using Voice Recognition software in a busy, high-work load, and often noisy Emergency Department environment. It may contain unintended and wholly unrecognized errors or omissions. Dragon Disclaimer This chart was dictated in whole or in part using Voice Recognition software in a busy, high-work load, and often noisy Emergency Department environment. It may contain unintended and wholly unrecognized errors or omissions. Dragon Disclaimer This chart was dictated in whole or in part using Voice Recognition software in a busy, high-work load, and often noisy Emergency Department environment. It may contain unintended and wholly unrecognized errors or omissions. LINK MONTOYA MD Apr 01, 2020 22:07
[2020-04-01] MEDS ORDERED: IV RINGERS SOLUTION,LACTATED 1,000 ML IV SCH (22:15)
[2020-04-01 22:56] LABS: BARBITURATES NEG (NEG); BENZODIAZEPINES NEG (NEG); CANNABINOIDS POS (NEG); COCAINE NEG (NEG); METHADONE NEG (NEG); OPIATES NEG (NEG); PHENCYCLIDINE NEG (NEG)
[2020-04-01 23:02] LABS: BASO # 0.1 x10^3/uL (0.0-0.2); BASO % 1 % (0-3); EOS # 0.1 x10^3/uL (0.0-0.7); EOS % 1 % (0-3); HEMATOCRIT 39.7 % (36.0-47.0); HEMOGLOBIN 13.3 g/dL (12.0-15.5); LYMPH # 2.2 x10^3/uL (1.0-4.8); LYMPH % 21 % (24-48); MEAN CORPUSCULAR HEMOGLOBIN 30 pg (25-35); MEAN CORPUSCULAR HGB CONC 34 g/dL (31-37); MEAN CORPUSCULAR VOLUME 89 fL (79-100); MONO # 0.9 x10^3/uL (0.0-1.1); MONO % 8 % (0-9); NEUT # 7.3 x10^3uL (1.8-7.7); NEUT % 69 % (31-73); PLATELET COUNT 217 x10^3/uL (140-400); RED BLOOD COUNT 4.49 x10^6/uL (3.50-5.40); RED CELL DISTRIBUTION WIDTH 14.2 % (11.5-14.5); WHITE BLOOD COUNT 10.6 x10^3/uL (4.0-11.0)
[2020-04-01 23:04] LABS: AMPHETAMINE/METHAMPHETAMINE NEG (NEG)
[2020-04-01] MEDS ORDERED: SODIUM BICARB ADULT 8.4% 50 MEQ/50 ML DISP.SYRIN. IV ONE (23:15)
[2020-04-01 23:18] LABS: BGAS PH 7.38 (7.35-7.45)
[2020-04-01 23:26] LABS: CALCIUM 8.4 mg/dL (8.5-10.1); CREATININE 0.7 mg/dL (0.6-1.0); GFR 95.8; POTASSIUM 3.7 mmol/L (3.5-5.1)
[2020-04-01 23:39] LABS: CLARITY,URINE HAZY; COLOR,URINE STRAW
[2020-04-01 23:39] LABS: ALBUMIN 3.2 g/dL (3.4-5.0); DIRECT BILIRUBIN 0.1 mg/dL (0.0-0.2); MAGNESIUM 2.2 mg/dL (1.8-2.4); TOTAL BILIRUBIN 0.3 mg/dL (0.2-1.0); TOTAL PROTEIN 7.4 g/dL (6.4-8.2)
[2020-04-01 23:40] LABS: BACTERIA,URINE FEW /HPF (0-FEW); BILIRUBIN,URINE NEG (NEG); GLUCOSE,URINE NEG (NEG); NITRITE,URINE NEG (NEG); RBC,URINE 0 /HPF (0-2); SQUAMOUS EPITHELIAL CELL,UR FEW /LPF; UROBILINOGEN,URINE 0.2 mg/dL (0.2 mg/dL)
[2020-04-01 23:41] LABS: TRICHOMONAS,URINE PRESENT
[2020-04-01 23:52] LABS: PREG TEST PT QUAL NEGATIVE (NEG)
[2020-04-01 23:55] LABS: ETHANOL 39 mg/dL (0-10); SALIC 4.1 mg/dL (2.8-20.0)
--- NOTE | 2020-04-01 23:55 | RAD ---
INDICATION: Reason: od, H/O SMOKING / Spl. Instructions: / History: COMPARISON: October 2005 FINDINGS: Single view of chest obtained. Hypoexpanded examination. Mild haziness at the lung bases. Cardiac silhouette is prominent in size but likely exaggerated by portable technique. IMPRESSION: * Hypoexpanded exam with mild hazy opacities at the lung bases which could be from atelectasis with infiltrate not excluded. * Cardiac silhouette prominent in size. Electronically signed by: Duke Silveira MD (04/01/2020 11:52 PM) [id number]
[2020-04-01 23:57] LABS: ACETAMIN < 2.0 mcg/mL (10-30)
[2020-04-02] VITALS (7 sets, daily range): BP systolic 92–123; BP diastolic 50–78
[2020-04-02] MEDS ORDERED: ONDANSETRON PF 4 MG/2 ML VIAL. IVP PRN (00:15)
[2020-04-02] MEDS ORDERED: FOLIC ACID 1 MG TABLET PO ONE (00:30)
[2020-04-02] MEDS ORDERED: MVI, ADULT NO.4 WITH VIT K 10 ML, THIAMINE INJ 100 MG in IV RINGERS SOLUTION,LACTATED 1... IV ONE (00:30)
[2020-04-02] MEDS: IV RINGERS SOLUTION,LACTATED 1,000 ML IV SCH ×6 (01:14→05:29)
[2020-04-02] MEDS ORDERED: VENL75TA PO (01:40)
[2020-04-02] MEDS ORDERED: GABA-586 PO (01:40)
--- NOTE | 2020-04-02 01:55 | NUR ---
The patient, UCHE MAN, 34 y/o, F admitted by ROSHNI DEY MD, was given written information regarding hospital policies, unit procedures and contact persons. Health history and home medications were reviewed with patient. Bed locked and in lowest position, call light within reach. Valuables were checked and are being kept at the desk per suicide precautions.
[2020-04-02 02:20] LABS: SALIC 3.2 mg/dL (2.8-20.0)
[2020-04-02 02:38] LABS: ACETAMIN < 2.0 mcg/mL (10-30)
[2020-04-02] MEDS ORDERED: IV RINGERS SOLUTION,LACTATED 1,000 ML IV SCH ×2 (06:00→06:45)
[2020-04-02 06:02] LABS: SALIC 3.6 mg/dL (2.8-20.0)
--- NOTE | 2020-04-02 06:20 | EKG ---
[address] [address] Test Date: 2020-04-01 Test Time: 22:08:38 Pat Name: UCHE MAN Department: Room: Gender: F Tawer: : 1985 Requested By: LINK MONTOYA Order Number: [id number] Reading MD: Measurements Intervals [place] Rate: 109 P: 43 OR: 170 QRS: -72 QRSD: 98 T: 34 QT: 334 QTc: 451 Interpretive Statements SINUS TACHYCARDIA ABNORMAL LEFT AXIS DEVIATION R-S TRANSITION ZONE IN V LEADS DISPLACED TO THE LEFT S1,S2,S3 PATTERN LEFT ANTERIOR FASCICULAR BLOCK ABNORMAL ECG RI6.02 No previous ECG available for comparison
--- NOTE | 2020-04-02 06:21 | EKG ---
[address] [address] Test Date: 2020-04-02 Test Time: 00:05:40 Pat Name: UCHE MAN Department: Room: Gender: F Clinic Cma: : 1985 Requested By: LINK MONTOYA Order Number: [id number] Reading MD: Measurements Intervals [place] Rate: 89 P: 35 MA: 168 QRS: -25 QRSD: 98 T: 31 QT: 370 QTc: 457 Interpretive Statements SINUS RHYTHM LEFTWARD AXIS OTHERWISE NORMAL ECG RI6.02 No previous ECG available for comparison
--- NOTE | 2020-04-02 06:26 | EKG ---
[address] [address] Test Date: 2020-04-02 Test Time: 02:10:47 Pat Name: UCHE MAN Department: Room: [facility] 1 Gender: F Sagger Preparer: : 1985 Requested By: ROSHNI DEY Order Number: [id number] Reading MD: Measurements Intervals [place] Rate: 74 P: 57 OK: 168 QRS: -11 QRSD: 100 T: 28 QT: 400 QTc: 444 Interpretive Statements SINUS RHYTHM LEFTWARD AXIS NO SPECIFIC ECG ABNORMALITIES RI6.01 No previous ECG available for comparison
[2020-04-02] MEDS ORDERED: IPRATRPIUM/ALBUTEROL 0.5/2.5MG 3 ML NEBU. NEB SCH (08:00)
--- NOTE | 2020-04-02 09:01 | HP ---
ADMIT DATE: 04/02/2020 ATTENDING PHYSICIAN: Dr. Dey. CHIEF COMPLAINT: Drug overdose. HISTORY OF PRESENT ILLNESS: The patient is a 34-year-old female who has a longstanding history of depression. She has had suicide attempts in the past. She became despondent. She took an overdose of her Neurontin, unspecified amount of 300 mg of Neurontin and 20 tablets of Effexor 75 mg. She was seen in the ED. She also drank a pint of hue in addition. She has been unemployed. 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 She has been unemployed because of the COVID issue. She took the drug attempt saying that I wanted to end it all. PAST MEDICAL HISTORY: Significant for chronic alcoholism, bipolar disorder, depression. PAST SURGICAL HISTORY: Tonsillectomy and tubal ligation. MEDICATIONS: Prescribed were Effexor 75 mg a day and Neurontin 300 b.i.d. ALLERGIES: SHE HAS ALLERGIES TO IBUPROFEN. SOCIAL HISTORY: Smoking history as noted a pack a day. Drinking history as noted, chronic alcoholism in the past. FAMILY HISTORY: Mom and dad are both alive at age 55 and 54 respectively. She has 2 children, ages 12 and 14 respectively. REVIEW OF SYSTEMS: Significant for depression symptoms. She has been under a lot of stress. She just wanted to kill herself. She has become very despondent. She denied any chest pain or palpitations. She denied any nausea. She is a little bit sleepy. All other systems reviewed and determined to be negative. PHYSICAL EXAMINATION: GENERAL: When I saw her, this is a pleasant young female. VITAL SIGNS: Initial vital signs when I saw her showed a blood pressure 115/78, pulse is 73 and regular, temperature 97.9 degrees Fahrenheit, oxygen saturation 97% on room air. HEENT: Head is without trauma. Pupils are reactive. Sclerae nonicteric. The oropharynx is clear. NECK: Supple, no bruits identified. LUNGS: Otherwise clear. CARDIOVASCULAR: Showed regular heart rate, no gallops. Peripheral pulses are palpable and full. ABDOMEN: Obese, protuberant. No organomegaly, no guarding or rebound tenderness. EXTREMITIES: Showed no cyanosis or edema. NEUROLOGIC: Focally intact. Speech is fluent. No focal deficits. SKIN: Warm and dry. PERTINENT LABORATORY AND X-RAY STUDIES: The chest x-ray on admission showed hypoexpanded ____ with some atelectasis. Heart size at normal range. LABORATORY STUDIES: The hemoglobin is 13.3 g/dL with white count of 10,600. Electrolytes within normal range. Cardiac enzymes negative. Transaminases and liver panel was normal. Toxicology screen: The alcohol level was measured at 39. ASSESSMENT: 1. This is a 34-year-old female, took an unspecified amount of Neurontin and Effexor in a suicide attempt. 2. Major depression. 3. Bipolar disorder. 4. Previous history of suicide attempts. 5. Chronic alcoholism. 6. Chronic obstructive pulmonary disease. PLAN: 1. Admit to the inpatient unit. 2. IV fluids and recommendations per Poison Control guidelines. 3. Diet as tolerated. 4. client services coordinator and [facility] to assess the patient to determine whether she needs to go to an inpatient facility. ROSHNI DEY MD DR: PATRICIA/marcia JOB#: [id number] / [id number]
[2020-04-02] MEDS ORDERED: IPRATRPIUM/ALBUTEROL 0.5/2.5MG 3 ML NEBU. NEB PRN (10:00)
--- NOTE | 2020-04-02 11:03 | DS ---
DATE OF DISCHARGE: 04/02/2020 ATTENDING PHYSICIAN: Dr. Dey. FINAL DISCHARGE DIAGNOSES: 1. Suicide attempt with a drug overdose. 2. Major depression. 3. Bipolar disorder. 4. Previous history of suicide attempt. 5. Chronic alcoholism. 6. Chronic obstructive pulmonary disease. HISTORY AND PHYSICAL: This is a 34-year-old female became despondent, lots of stress at home. She lost her job. Personal issues with men. She took an intentional overdose of her Neurontin, unspecified amount as well as 20 tablets of Effexor, 75 mg dosages. She also drank a pint of hue in addition to the meds. She has been unemployed. She was treated accordingly and followed poison control protocol. She was admitted to the hospitalist service for further evaluation and monitoring. PHYSICAL EXAMINATION: Please see my dictated note. PERTINENT LABORATORY AND X-RAY STUDIES: Her hemoglobin is maintained at 13.3 g/dL with a white count of 10,000. Electrolytes, BUN and creatinine, cardiac enzymes, all within normal range. Liver panel was unremarkable. Normal bilirubin. Toxicology screen, blood alcohol level is 39. Urinalysis was clear. COURSE IN THE HOSPITAL: The patient was treated accordingly with IV hydration, lavage and recommendations for Poison Control. She did well. IVs were discontinued. Diet was advanced. She was a bit groggy the next morning, but very alert without any focal neurologic deficits. When I examined her, she was remorseful and stated she was not actively suicidal. Later in the afternoon, she was seen and evaluated by the case management and the [facility]. They did a screen. They took her history, monitored her results and felt that she was safe for discharge. They will follow up with her along with a followup plan. They felt she was not suicidal and ready for discharge. On later that afternoon, on the second day, her blood pressure was quite stable at 115/78, pulse was 73 and regular. She was afebrile. Her lungs were clear. Heart rate was regular. She had no localizing signs. Therefore, she was discharged home. I put on the discharge summary she can restart her Effexor as prescribed, but I did not write for any more nor that I wrote for any more Neurontin. Therefore, she is discharged home in stable condition with explicit instruction from the [facility] for followup regarding her psychiatric care. ROSHNI DYE MD DR: PATRICIA/marcia JOB#: [id number] / [id number]
--- NOTE | 2020-04-02 12:00 | NUR ---
Reviewed discharge instructions w patient including when to follow up, numbers to call in a crisis, and s/sx of when to seek medical emergent attention. Pt verbalized understanding. Pt stated she felt safe to go home and has a good support system. Pt screened prior to discharge by Harpreet of [facility] via zoom. Safety plan was put into place, plan was signed and copy was provided for Dona, other copy was faxed to Harpreet. PIV removed, pt tolerated well, bandage applied. Pt had all belongings upon discharge including jewelry, clothing, shoes, cell phone, discharge paper work. Pt left unit at 1200 noon with her mother.
== END 2020-04-02 12:00 | disposition home or self-care (01) | DRG 918 ==
LOC: ER 22:01 → ICU 04-02 00:51
PROVIDERS: ADMIT Hospitalist; ATTEND Hospitalist
DX: T42.6X2A Poisoning by other antiepileptic and sedative-hypnotic drugs, intentional self-harm, initial encounter (principal); Z56.0 Unemployment, unspecified; Z81.8 Family history of other mental and behavioral disorders; Z87.891 Personal history of nicotine dependence; Z91.5 Personal history of self-harm; J44.9 Chronic obstructive pulmonary disease, unspecified; F31.9 Bipolar disorder, unspecified; F10.20 Alcohol dependence, uncomplicated; Z88.8 Allergy status to other drugs, medicaments and biological substances
CPT/HCPCS: 36415; 36600; 71045; 80048; 80076; 80307; 80329; 81001; 81025; 82550; 82803; 83690; 83735; 83880; 84443; 84484; 84703; 85025; 85610; 85730; 87086; 93005; 96361; 96374; 99292; 99406; G0238; G0480; J7120; 99291-25

== ENCOUNTER 2020-06-10 20:06 | Emergency (ER) | payer SELFPAY ==
[~2020-06-10] VITALS: Ht 162.6 cm; Wt 104.6 kg
[~2020-06-10 20:06] MED LIST changes: +GABA-586 PO; +VENL75TA PO
--- NOTE | 2020-06-10 20:25 | PHYS DOC ---
Past History Past Medical History: No Pertinent History, Alcoholism, Anxiety, Bipolar, Depression, Other Additional Past Medical Histor: PTSD, MULTIPLE PERSONALITY DISORDER Past Surgical History: , Tonsillectomy, Tubal ligation Additional Past Surgical Histo: hernia repair Alcohol Use: Occasionally Drug Use: Marijuana General Adult HPI: HPI: "... .. 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 And I got dizzy... 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 Patient is a 34 year old female who presents with above hx and complaints of dizziness . Patient has had past history of bipolar, depression, polysubstance, alcohol abuse, anxiety, PTSD, personality disorder disorder, multiple personality disorder, borderline personality, and does continue to smoke marijuana and tobacco. Patient denies any specific history of cardiac disorders or coagulopathy. 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 No specific ill contacts. Normally follows at [facility]. Patient states she has been compliant with her depression meds. Review of Systems: Review of Systems: Constitutional: Denies fever or chills Eyes: Denies change in visual acuity HENT: Denies nasal congestion or sore throat Respiratory: Denies cough or shortness of breath Cardiovascular: Denies chest pain or edema GI: Denies abdominal pain, nausea, vomiting, bloody stools or diarrhea : Denies dysuria Musculoskeletal: Denies back pain or joint pain Integument: Denies rash Neurologic: Denies headache, focal weakness or sensory changes . Complains of dizziness Endocrine: Denies polyuria or polydipsia Lymphatic: Denies swollen glands Psychiatric: Denies depression or anxiety Family History: Family History: Noncontributory to presentation Current Medications: Current Meds: See nursing for home meds Allergies: Allergies: Allergies Coded Allergies Type Severity Reaction Last Updated Verified ibuprofen Allergy Unknown 02/08/20 Yes Physical Exam: PE: Constitutional: , no acute distress, non-toxic appearance. [] HENT: Normocephalic, atraumatic, bilateral external ears normal, oropharynx moist, no oral exudates, nose normal. [] Eyes: PERRLA, EOMI, conjunctiva normal, no discharge. Glasses Neck: Normal range of motion, no tenderness, supple, no stridor. [] Cardiovascular:Heart rate regular rhythm, no murmur [] Lungs & Thorax: Bilateral breath sounds equal apex with scattered wheezes on auscultation [] Abdomen: Bowel sounds normal, soft, no tenderness, no masses, no pulsatile masses. Obese. Old surgery scars. Skin: Warm, dry, no erythema, no rash. Tattoos Back: No tenderness, no CVA tenderness. [] Extremities: No tenderness, no cyanosis, no clubbing, ROM intact, no edema. No cording appreciated Neurologic: Alert and oriented X 3, normal motor function, normal sensory function, no focal deficits noted. [] DTRs +2 patellar and brachial. No drift. Ambulatory without problems. Distal vibratory. Gin Pole Operator equal. Some lateralization to the right with the 128 fork. AC>BC Psychologic: Affect anxious, judgement normal, mood normal. [] EKG: EKG: My interpretation EKG shows a sinus rhythm at 71 bpm. There is mild leftward axis. But no findings acute STEMI of contralateral changes. [] Radiology/Procedures: Radiology/Procedures: [place] [address] IMAGING REPORT Signed PATIENT: UCHE MAN ACCOUNT: [id number] : 1985 LOCATION: ER AGE: 34 SEX: F EXAM STATUS: REG ER ORD. PHYSICIAN: LINK MONTOYA MD REASON: dizzy, wheeze PROCEDURE: PORTABLE CHEST 1V AP chest. HISTORY: Dizzy, wheezing AP view was taken of the chest. Lungs are free of infiltrates. Heart is normal in size. Patient's not taken a deep inspiration. IMPRESSION: 1. No acute infiltrates. Electronically signed by: Marcin Chandler MD (06/10/2020 10:00 PM) [facility] DICTATED AND SIGNED BY: MARCIN CHANDLER MD DATE: 06/10/202199 CC: LINK MONTOYA MD; PCP,NO ~MTH0 0 My interpretation of chest x-ray shows slightly enlarged cardiac silhouette. Some blunting of left costophrenic angle. No large consolidation or lobar your findings of pneumonia. In comparison to x-ray on 11/01/2005 did have a clear diaphragmatic excursion [] Heart Score: HEART Score for Chest Pain: HEART Score for Chest Pain Response (Comments) Value History Slighlty/Non-Suspicious 0 ECG Normal 0 Age < 45 0 Risk Factors 1 or 2 Risk Factors 1 Total 1 Risk Factors: Risk Factors: DM, Current or recent (<one month) smoker, HTN, HLP, family history of CAD, obesity. Risk Scores: Score 0 - 3: 2.5% MACE over next 6 weeks - Discharge Home Score 4 - 6: 20.3% MACE over next 6 weeks - Admit for Clinical Observation Score 7 - 10: 72.7% MACE over next 6 weeks - Early Invasive Strategies Course & Med Decision Making: Course & Med Decision Making Pertinent Labs and Imaging studies reviewed. (See chart for details) Patient push fluids. Get adequate rest. Encourage patient to stop smoking. Patient wear a mask that covers her nose and mouth at all times when outside her home. Patient is self isolate for the next 10 days. Follow-up primary care. Return if any concerns. Note computer malfunctions-difficulty and printing discharge instructions- Impression: 1. Viral Syndrome 2. Dizzy [] Dragon Disclaimer: Dragon Disclaimer: This electronic medical record was generated, in whole or in part, using a voice recognition dictation system. Departure Departure: Referrals: PCP,NO (PCP) Denisha Disclaimer This chart was dictated in whole or in part using Voice Recognition software in a busy, high-work load, and often noisy Emergency Department environment. It may contain unintended and wholly unrecognized errors or omissions. LINK MONTOYA MD Jun 10, 2020 20:25
[2020-06-10] MEDS ORDERED: IV RINGERS SOLUTION,LACTATED 1,000 ML IV ONE (20:30)
[2020-06-10 21:15] LABS: BACTERIA,URINE 0 /HPF (0-FEW); BILIRUBIN,URINE NEG (NEG); CLARITY,URINE HAZY; COLOR,URINE YELLOW; GLUCOSE,URINE NEG (NEG); NITRITE,URINE NEG (NEG); RBC,URINE 0 /HPF (0-2); SQUAMOUS EPITHELIAL CELL,UR MANY /LPF; UROBILINOGEN,URINE 0.2 mg/dL (0.2 mg/dL); WBC,URINE RARE /HPF (0-4)
[2020-06-10] MEDS ORDERED: IV RINGERS SOLUTION,LACTATED 1,000 ML IV SCH (21:15)
[2020-06-10 21:16] LABS: BARBITURATES NEG (NEG); BENZODIAZEPINES NEG (NEG); CANNABINOIDS POS (NEG); COCAINE NEG (NEG); METHADONE NEG (NEG); OPIATES NEG (NEG); PHENCYCLIDINE NEG (NEG)
[2020-06-10 21:18] LABS: AMPHETAMINE/METHAMPHETAMINE NEG (NEG)
[2020-06-10] MEDS ORDERED: diphenhydrAMINE 50 MG/ML VIAL IVP ONE (21:30)
[2020-06-10 21:56] LABS: BASO # 0.1 x10^3/uL (0.0-0.2); BASO % 1 % (0-3); EOS # 0.2 x10^3/uL (0.0-0.7); EOS % 2 % (0-3); HEMATOCRIT 39.6 % (36.0-47.0); HEMOGLOBIN 13.1 g/dL (12.0-15.5); LYMPH # 3.3 x10^3/uL (1.0-4.8); LYMPH % 38 % (24-48); MEAN CORPUSCULAR HEMOGLOBIN 29 pg (25-35); MEAN CORPUSCULAR HGB CONC 33 g/dL (31-37); MEAN CORPUSCULAR VOLUME 87 fL (79-100); MONO # 0.7 x10^3/uL (0.0-1.1); MONO % 8 % (0-9); NEUT # 4.5 x10^3uL (1.8-7.7); NEUT % 52 % (31-73); PLATELET COUNT 265 x10^3/uL (140-400); RED BLOOD COUNT 4.57 x10^6/uL (3.50-5.40); RED CELL DISTRIBUTION WIDTH 14.2 % (11.5-14.5); WHITE BLOOD COUNT 8.8 x10^3/uL (4.0-11.0)
--- NOTE | 2020-06-10 22:03 | RAD ---
AP chest. HISTORY: Dizzy, wheezing AP view was taken of the chest. Lungs are free of infiltrates. Heart is normal in size. Patient's not taken a deep inspiration. IMPRESSION: 1. No acute infiltrates. Electronically signed by: Marcin Sanon MD (06/10/2020 10:00 PM) [facility]
[2020-06-10 22:12] LABS: ANION GAP 8 (6-14); BLOOD UREA NITROGEN 19 mg/dL (7-20); CALCIUM 8.4 mg/dL (8.5-10.1); CARBON DIOXIDE 28 mmol/L (21-32); CHLORIDE 101 mmol/L (98-107); CREATININE 0.8 mg/dL (0.6-1.0); GFR 82.1; GLUCOSE 89 mg/dL (70-99); POTASSIUM 3.8 mmol/L (3.5-5.1); SODIUM 137 mmol/L (136-145)
[2020-06-10 22:17] LABS: ALBUMIN 3.4 g/dL (3.4-5.0); ALK PHOS 89 U/L (46-116); ALT (SGPT) 34 U/L (14-59); AST (SGOT) 19 U/L (15-37); C REACTIVE PROTEIN 9.4 mg/L (0-3.3); DIRECT BILIRUBIN < 0.1 mg/dL (0.0-0.2); MAGNESIUM 1.9 mg/dL (1.8-2.4); TOTAL BILIRUBIN 0.1 mg/dL (0.2-1.0); TOTAL PROTEIN 7.3 g/dL (6.4-8.2)
--- NOTE | 2020-06-10 22:52 | EKG ---
[address] [address] Test Date: 2020-06-10 Test Time: 21:17:58 Pat Name: UCHE MAN Department: Room: Gender: F Sld Teacher: LINNETTE : 1985 Requested By: LINK MONTOYA Order Number: [id number] Reading MD: Greg Toledo Measurements Intervals [place] Rate: 71 P: 53 MO: 160 QRS: -18 QRSD: 96 T: 25 QT: 400 QTc: 440 Interpretive Statements SINUS RHYTHM LEFTWARD AXIS Electronically Signed On 06-13-2020 10:51:19 ELECTRIC ENGINE MECHANIC by Greg Toledo
[2020-06-10 23:25] VITALS: BP 104/68
== END 2020-06-10 23:30 | disposition home or self-care (01) ==
LOC: ER 20:06
DX: B34.9 Viral infection, unspecified (principal); R42 Dizziness and giddiness; R06.2 Wheezing; F41.9 Anxiety disorder, unspecified; F32.9 Major depressive disorder, single episode, unspecified; F10.10 Alcohol abuse, uncomplicated; F12.90 Cannabis use, unspecified, uncomplicated; Z98.51 Tubal ligation status; Z98.890 Other specified postprocedural states; Z88.8 Allergy status to other drugs, medicaments and biological substances
CPT/HCPCS: 36415; 71045; 80048; 80076; 80307; 81001; 81025; 83735; 84443; 84484; 85025; 85379; 86140; 93005; 96361; 96374; 99285; J1200; J7120

== ENCOUNTER 2020-07-14 21:51 | Emergency (ER) | payer SELFPAY ==
[~2020-07-14] VITALS: Ht 162.6 cm; Wt 104.6 kg
--- NOTE | 2020-07-14 22:00 | PHYS DOC ---
Past History Past Medical History: Alcoholism, Anxiety, Bipolar, Depression, Other Additional Past Medical Histor: PTSD, MULTIPLE PERSONALITY DISORDER Past Surgical History: Cholecystectomy, , Tonsillectomy, Tubal ligation Additional Past Surgical Histo: hernia repair Alcohol Use: Occasionally Drug Use: Marijuana Adult General Chief Complaint Chief Complaint: ANKLE PROBLEM HPI HPI Patient is a 34-year-old female who presents with left medial ankle pain. States she hurt her ankle yesterday evening but cannot recall an inciting event, trauma or mechanism of injury as she states the night was "a blur" due to alcohol consumption. States she has had difficulty with ambulation due to weightbearing with medial left ankle pain, has been able to ambulate but has been antalgic and doing so. Pain is focal and nonradiating. Nothing known makes better or worse. Admits she has tried to use Tylenol and ibuprofen in addition to ice with relief in symptoms. No infectious symptoms such as fever, chills, diaphoresis, no other concerning abnormalities such as motor or sensory function changes past baseline or neurologic abnormalities. Review of Systems Review of Systems Fourteen body systems of review of systems have been reviewed. See HPI for pertinent positives and negative responses, other haro all other systems are negative, non-pertinent or non-contributory Allergies Allergies Allergies Coded Allergies Type Severity Reaction Last Updated Verified ibuprofen Allergy Unknown 02/08/20 Yes Physical Exam Physical Exam Constitutional: Well developed, well nourished, no acute distress, non-toxic appearance. HENT: Normocephalic, atraumatic, bilateral external ears normal, oropharynx moist, no oral exudates, nose normal. Eyes: PERRLA, EOMI, conjunctiva normal, no discharge. Neck: Normal range of motion, no tenderness, supple, no stridor. Cardiovascular: Heart rate regular per monitor Lungs & Thorax: No respiratory distress or accessory muscle use, bilateral chest rise Abdomen: Abdomen soft, non-tender, bowel sounds present in all quadrants, no gua rding or rebound, nonacute abdomen. Skin: Warm, dry, no erythema, no rash. Back: No tenderness, no CVA tenderness. Extremities: No cyanosis, no clubbing, ROM intact, no edema. Bilateral Feet and Ankles unless otherwise noted: Proximal Tibia nontender Medial malleolus of left mason tender with palpation Lateral malleolus nontender Calcaneus nontender Tarsometatarsal region nontender Base of 5th nontender Rest of foot and ankle without marked tenderness Varus and Valgus Stress of ankle joint without significant laxity Full Range of Motion with full strength Skin on plantar section of midfoot without ecchymosis Capillary refill <2seconds and distal Sensation to light touch in tact per routine Compartments surrounding are soft Neurologic: Alert and oriented X 3, grossly normal motor & sensory function, no focal deficits noted. Psychologic: Affect normal, judgement normal, mood normal. Current Patient Data Vital Signs Vital Signs Date Time Temp Pulse Resp B/P (MAP) Pulse Ox O2 Delivery O2 Flow Rate FiO2 07/14/20 22:02 97.8 89 18 141/97 (112) 96 Room Air EKG EKG [] Radiology/Procedures Radiology/Procedures EXAM: XR EXAM OF ANKLE_LEFT 3V 07/14/2020 10:14 PM CLINICAL INDICATION: Medial malleolar pain COMPARISON: None TECHNIQUE: 3 views of the left ankle FINDINGS: Tiny osseous flake at the tip of the medial malleolus seen on oblique view is suspicious for tiny avulsion fracture. Alignment is normal. The ankle mortise is symmetric and talar dome is intact. No focal soft tissue abnormality. IMPRESSION: Suspected tiny medial malleolar avulsion fracture seen on oblique view. Electronically signed by: Nichol Pena MD (07/14/2020 10:51 PM) [id number] Heart Score Risk Factors: Risk Factors: DM, Current or recent (<one month) smoker, HTN, HLP, family history of CAD, obesity. Risk Scores: Risk Factors: DM, Current or recent (<one month) smoker, HTN, HLP, family history of CAD, obesity. Course & Med Decision Making Course & Med Decision Making Discussed with the patient all findings and diagnostic testing. I discussed most likely diagnosis of left sprain/contusion versus questionable small avulsion fracture medial malleoli as indicated by radiologist impression. Patient's c ondition likely self-limiting and will resolve with supportive care practices. Nonetheless, given impression concerning for avulsion fracture, I discussed need for splinting with use of crutches and close outpatient follow-up for repeat evaluation and potential radiographs. Patient deferred splinting, also deferred using crutches stating she has hidradenitis suppurativa of bilateral underarms and she is afraid to utilize these with the snow. Instead, patient who is able to ambulate states she can provide supportive care to herself, limit excessive weightbearing activity and follow-up with her primary care physician this upcoming week. I did disclose this is suboptimal for healing but patient understood risks and benefits of not utilizing splint and crutches as advised. Strict return precautions were also discussed at length with good understanding by patient. Patient voiced understanding and agreement with the plan. Patient knows to come back for repeat evaluation if concerning signs or symptoms present prior to outpatient follow-up. Hemodynamically stable, ambulatory and well- appearing at time of disposition. Dragon Disclaimer Dragon Disclaimer This electronic medical record was generated, in whole or in part, using a voice recognition dictation system. Departure Departure: Impression: Primary Impression: Acute left ankle pain Disposition: 01 DC HOME SELF CARE/HOMELESS Condition: STABLE Referrals: PCP,NO (PCP) Patient Instructions: Ankle Pain, RICE - Routine Care for Injuries Additional Instructions: You have been evaluated in the Emergency Department today for ankle pain. The x- ray of your ankle showed I suspect medial malleoli avulsion fracture. You have deferred splinting today Please utilize ankle Aircast and walker, please limit ambulation/weightbearing as much as tolerated. You can alternate Tylenol and/or Motrin every 4-6 hours to help control your pain. Please also rest, ice, and elevate your ankle to control your pain. Please follow up with your primary care physician and discuss need for outpatient orthopedic referral for repeat evaluation with potential repeat radiographs in upcoming 7 to 14 days after ER departure Return to the Emergency Department if you experience worsening pain, numbness/tingling, change of color in your toes, or any other concerning symptoms. LONNIE BAZAN DO Jul 14, 2020 22:00
[2020-07-14 22:02] VITALS: BP 141/97
--- NOTE | 2020-07-14 22:54 | RAD ---
EXAM: XR EXAM OF ANKLE_LEFT 3V 07/14/2020 10:14 PM CLINICAL INDICATION: Medial malleolar pain COMPARISON: None TECHNIQUE: 3 views of the left ankle FINDINGS: Tiny osseous flake at the tip of the medial malleolus seen on oblique view is suspicious f or tiny avulsion fracture. Alignment is normal. The ankle mortise is symmetric and talar dome is inta ct. No focal soft tissue abnormality. IMPRESSION: Suspected tiny medial malleolar avulsion fracture seen on oblique view. Electronically signed by: Nichol Pena MD (07/14/2020 10:51 PM) [id number]
== END 2020-07-14 23:26 | disposition home or self-care (01) ==
LOC: ER 21:51
DX: M25.572 Pain in left ankle and joints of left foot (principal); F10.20 Alcohol dependence, uncomplicated; F43.10 Post-traumatic stress disorder, unspecified; F44.81 Dissociative identity disorder; Z88.6 Allergy status to analgesic agent; Y90.9 Presence of alcohol in blood, level not specified
CPT/HCPCS: 73610; 99283; L4350

== ENCOUNTER 2020-08-12 12:08 | Emergency (ER) | payer SELFPAY ==
[~2020-08-12] VITALS: Ht 162.6 cm; Wt 104.0 kg
[2020-08-12] MEDS ORDERED: IV NORMAL SALINE 1,000ML 1,000 ML IV ONE (12:15)
--- NOTE | 2020-08-12 12:23 | PHYS DOC ---
Past History Past Medical History: Alcoholism, Anxiety, Bipolar, Depression, Other Additional Past Medical Histor: PTSD, MULTIPLE PERSONALITY DISORDER Past Surgical History: Cholecystectomy, , Tonsillectomy, Tubal ligation, Other Additional Past Surgical Histo: hernia repair Alcohol Use: Occasionally Drug Use: Marijuana Adult General Chief Complaint Chief Complaint: NAUSEA/VOMITING/DIARRHEA HPI HPI Patient is a 34-year-old female presents to the emergency department complaining of sudden onset dizziness with vomiting while at work. Patient stated she vomited x1 at work and felt "off ", and was brought here to the emergency department. Patient vomited times once during HPI noted food particles and bile in vomitus. Patient denies fever chills, denies shortness of breath, denies c hest pains, denies chest palpitations. Patient denies any abdominal pains, diarrhea, or constipation. Patient denies any urinary tract infection type signs and symptoms, denies vaginal discharge, denies STI concerns. Patient states she is currently on her menstrual period. Patient reports taking home medications gabapentin and Effexor for bipolar disorder. Patient surgical his tory includes cholecystectomy, umbilical hernia repair, and . Last surgery was 8 years ago. Patient denies being in any recent contact with COVID- 19 virus, however patient states she tested positive for the COVID-19 virus the first week in June. Patient states that this presentation does not feel like when she had the COVID-19 virus back in June. Patient denies any loss of taste, loss of smell, or body aches, or rashes of her skin. Patient reports being a cigarette smoker, drinks alcohol occasionally stating her last drink was last night which she had only 1 drink, smokes marijuana every night, no other illicit drug use. Review of Systems Review of Systems 14 body systems of review of systems have been reviewed. See HPI for pertinent positives and negative responses, otherwise all other systems are negative, nonpertinent or noncontributory. Current Medications Current Medications Patient reports taking gabapentin and Effexor. Allergies Allergies Allergies Coded Allergies Type Severity Reaction Last Updated Verified No Known Drug Allergies 07/14/20 No Physical Exam Physical Exam Constitutional: Well developed, well nourished, no acute distress, non-toxic ap pearance. HENT: Normocephalic, atraumatic, bilateral external ears normal, oropharynx moist, no oral exudates, nose normal. Eyes: PERRLA, EOMI, conjunctiva normal, no discharge. Neck: Normal range of motion, no tenderness, supple, no stridor. Cardiovascular:Heart rate regular rhythm, no murmur, heart sounds S1-S2. Lungs & Thorax: Bilateral breath sounds clear to auscultation all lung hale. Abdomen: Bowel sounds normal, soft, no tenderness, no masses, no pulsatile masses. Patient had 1 episode of vomiting during physical exam noted food particles and bile in vomitus. Skin: Warm, dry, no erythema, no rash. Back: No tenderness, no CVA tenderness. Extremities: No tenderness, no cyanosis, no clubbing, ROM intact, no edema. Neurologic: Alert and oriented X 3, normal motor function, normal sensory function, no focal deficits noted. Psychologic: Affect normal, judgement normal, mood normal. Current Patient Data Lab Results Laboratory Tests Test 08/12/20 10:40 08/12/20 12:20 08/12/20 12:40 Troponin I Quantitative < 0.017 ng/mL White Blood Count 9.6 x10^3/uL Red Blood Count 4.77 x10^6/uL Hemoglobin 13.6 g/dL Hematocrit 41.3 % Mean Corpuscular Volume 87 fL Mean Corpuscular Hemoglobin 29 pg Mean Corpuscular Hemoglobin Concent 33 g/dL Red Cell Distribution Width 14.8 % Platelet Count 267 x10^3/uL Neutrophils (%) (Auto) 65 % Lymphocytes (%) (Auto) 25 % Monocytes (%) (Auto) 8 % Eosinophils (%) (Auto) 1 % Basophils (%) (Auto) 1 % Neutrophils # (Auto) 6.2 x10^3uL Lymphocytes # (Auto) 2.4 x10^3/uL Monocytes # (Auto) 0.8 x10^3/uL Eosinophils # (Auto) 0.1 x10^3/uL Basophils # (Auto) 0.1 x10^3/uL Ethyl Alcohol Level < 10 mg/dL Sodium Level 137 mmol/L Potassium Level 4.1 mmol/L Chloride Level 103 mmol/L Carbon Dioxide Level 26 mmol/L Anion Gap 8 Blood Urea Nitrogen 8 mg/dL Creatinine 0.8 mg/dL Estimated GFR (Cockcroft-Gault) 82.1 BUN/Creatinine Ratio 10 Glucose Level 135 mg/dL Calcium Level 8.6 mg/dL Total Bilirubin 0.3 mg/dL Aspartate Amino Transf (AST/SGOT) 26 U/L Alanine Aminotransferase (ALT/SGPT) 32 U/L Alkaline Phosphatase 82 U/L Total Protein 7.7 g/dL Albumin 3.4 g/dL Albumin/Globulin Ratio 0.8 Lipase 228 U/L Current Medications Medications (Trade) Dose Ordered Sig/Pantera Route PRN Reason Start Time Stop Time Status Last Admin Dose Admin Sodium Chloride 1,000 ml @ 1,000 mls/hr 1X ONCE IV 08/12/20 12:15 08/12/20 13:14 DC 08/12/20 12:54 Ondansetron HCl (Zofran) 4 mg 1X ONCE IVP 08/12/20 13:00 08/12/20 13:01 DC 08/12/20 12:54 EKG EKG EKG performed at 1234 by house respiratory therapy staff shows normal sinus rhythm without ectopy heart rate 69 bpm, IL interval 0.166, QTc interval 0.459, no acute STEMI, no ACS, no acute ischemia appreciated, EKG interpreted by ED attending physician Dr. Burroughs. Radiology/Procedures Radiology/Procedures PATIENT: UCHE MAN ACCOUNT: [id number] : 1985 LOCATION: ER AGE: 34 SEX: F EXAM STATUS: REG ER ORD. PHYSICIAN: LUIS ELIZONDO APRN REASON: DIZZY PROCEDURE: CT HEAD WO CONTRAST CT head without contrast: Reason for examination: Dizziness. Axial images were obtained through the brain. No contrast was administered. Exposure: One or more of the following individualized dose reduction techniques were utilized for this examination: 1. Automated exposure control 2. Adjustment of the mA and/or kV according to patient size 3. Use of iterative reconstruction technique. Ventricular systems are symmetric and not dilated. No midline shift is seen. There is no evidence of intracranial hemorrhage, infarct, mass or edema. No abnormalities are seen at the orbits. The paranasal sinuses and mastoid air cells are clear. No acute skull abnormality is seen. IMPRESSION: No acute intracranial abnormality evident. Electronically signed by: Raheem Spivey MD (08/12/2020 12:38 PM) [facility] DICTATED AND SIGNED BY: RAHEEM SPIVEY MD DATE: 08/12/20 1236 CC: LUIS ELIZONDO APRN; PCP,SHELBY ~MTH0 0 Heart Score Risk Factors: Risk Factors: DM, Current or recent (<one month) smoker, HTN, HLP, family h istory of CAD, obesity. Risk Scores: Risk Factors: DM, Current or recent (<one month) smoker, HTN, HLP, family history of CAD, obesity. Course & Med Decision Making Course & Med Decision Making Pertinent Labs and Imaging studies reviewed. (See chart for details) 34-year-old female, vital signs reviewed, presents to the emergency department with complaints of sudden onset of dizziness and bilious vomiting while at work today. ED work-up included EKG, troponinhigh, CBC, CMP, EtOH level, urine analysis assay with urine drug screen, CT head. Patient CT head negative for acute process, cardiac work-up negative, patient was given 1 L normal saline along with 4 mg Zofran while labs were pending. Physical reexamination, patient denies dizziness and nausea. Patient states she does not want to give her urine for urinalysis assay. Discussed findings with patient, and diagnosis most likely cyclic vomiting syndrome related to chronic marijuana use. Discussed with patient need to follow-up with primary care related to intermittent hypertensive blood pressures during her ER stay. Disc ussed with patient cigarette smoking cessation, discussed with patient marijuana smoking cessation. Patient gave verbal understanding of discharge home instructions, follow-up with primary care, return to ER precautions or concerns, patient discharged home without incident Dragon Disclaimer Dragon Disclaimer This electronic medical record was generated, in whole or in part, using a voice recognition dictation system. Departure Departure: Impression: Primary Impression: Cyclic vomiting syndrome Additional Impressions: Drug abuse Cigarette smoker Nausea & vomiting Disposition: 01 DC HOME SELF CARE/HOMELESS Condition: IMPROVED Referrals: PCP,NO (PCP) Patient Instructions: Nausea and Vomiting, Smoking Cessation Additional Instructions: We have discussed smoking cessation, marijuana smoking cessation, your nausea vomiting possibly due to chronic marijuana use. Please follow-up with your primary care doctor soon, I have given you a prescription for ODT Zofran for any continued nausea and vomiting. Please return to the emergency department for worsening symptoms or other concerns. EMERGENCY DEPARTMENT GENERAL DISCHARGE INSTRUCTIONS Thank you for coming to [facility] (ED) today and trusting us with you care. We trust that you had a positivie experience in our Emergency Department. If you wish to speak to the department management, you may call the director at [phone]. YOUR FOLLOW UP INSTRUCTIONS ARE FOLLOWS: 1. Do you have a private Doctor? If you do not have a private doctor, please ask for a resource list of physicians or clinics that may be able to assist you with follow up care. 2. The Emergency Physician has interpreted your x-rays. The X-Ray specialist will also review them. If there is a change in the findings, you will be notified in 48 hours when at all possible. 3. A lab test or culture has been done, your results will be reviewed and you will be notified if you need a change in treatment. ADDITIONAL INSTRUCTIONS AND INFORMATION: 1. Your care today has been supervised by a physician who is specially trained in emergency care. Many problems require more than one evaluation for a complete diagnosis and treatment. We recommend that you schedule your follow up appointment as recommended to ensure complete treatment of you illness or injury. If you are unable to obtain follow up care and continue to have a problem, or if your condition worsens, we recommend that you return to the ED. 2. We are not able to safely determine your condition over the phone nor are we able to give sound medical advice over the phone. For these safety reasons, if you call for medical advice we will ask you to come to the ED for further evaluation. 3. If you have any questions regarding these discharge instructions please call the ED at [phone]. SAFETY INFORMATION: In the interest of safety, wellness, and injury prevention; we encourage you to wear your sealbelt, if you smoke; quite smoking, and we encourage family to use a protective helmet for bicycling and other sporting events that present an increased risk for head injury. IF YOUR SYMPTOMS WORSEN OR NEW SYMPTOMS DEVELOP, OR YOU HAVE CONCERNS ABOUT YOUR CONDITION; OR IF YOUR CONDITION WORSENS WHILE YOU ARE WAITING FOR YOUR FOLLOW UP APPOINTMENT; EITHER CONTACT YOUR PRIMARY CARE DOCTOR, THE PHYSICIAN WHOSE NAME AND NUMBER YOU WERE GIVEN, OR RETURN TO THE ED IMMEDIATELY. Scripts Ondansetron (ONDANSETRON ODT) 4 Mg Tab.rapdis 4 MG PO TID PRN PRN for NAUSEA, #12 TAB 0 Refills Prov: LUIS ELIZONDO DELIVERY STOCK CLERK 08/12/20 Problem Qualifiers Additional Impressions: Nausea & vomiting Vomiting type: bilious vomiting Qualified Codes: R11.14 - Bilious vomiting LUIS ELIZONDO APRN Aug 12, 2020 12:23
[2020-08-12 12:40] LABS: BASO # 0.1 x10^3/uL (0.0-0.2); BASO % 1 % (0-3); EOS # 0.1 x10^3/uL (0.0-0.7); EOS % 1 % (0-3); HEMATOCRIT 41.3 % (36.0-47.0); HEMOGLOBIN 13.6 g/dL (12.0-15.5); LYMPH # 2.4 x10^3/uL (1.0-4.8); LYMPH % 25 % (24-48); MEAN CORPUSCULAR HEMOGLOBIN 29 pg (25-35); MEAN CORPUSCULAR HGB CONC 33 g/dL (31-37); MEAN CORPUSCULAR VOLUME 87 fL (79-100); MONO # 0.8 x10^3/uL (0.0-1.1); MONO % 8 % (0-9); NEUT # 6.2 x10^3uL (1.8-7.7); NEUT % 65 % (31-73); PLATELET COUNT 267 x10^3/uL (140-400); RED BLOOD COUNT 4.77 x10^6/uL (3.50-5.40); RED CELL DISTRIBUTION WIDTH 14.8 % (11.5-14.5); WHITE BLOOD COUNT 9.6 x10^3/uL (4.0-11.0)
--- NOTE | 2020-08-12 12:43 | RAD ---
CT head without contrast: Reason for examination: Dizziness. Axial images were obtained through the brain. No contrast was administered. Exposure: One or more of the following individualized dose reduction techniques were utilized for thi s examination: 1. Automated exposure control 2. Adjustment of the mA and/or kV according to patient size 3. Use of iterative reconstruction technique. Ventricular systems are symmetric and not dilated. No midline shift is seen. There is no evidence of intracranial hemorrhage, infarct, mass or edema. No abnormalities are seen at the orbits. The paranas al sinuses and mastoid air cells are clear. No acute skull abnormality is seen. IMPRESSION: No acute intracranial abnormality evident. Electronically signed by: Amara Rocha MD (08/12/2020 12:38 PM) [facility]
[2020-08-12 12:52] LABS: CALCIUM 8.6 mg/dL (8.5-10.1); CREATININE 0.8 mg/dL (0.6-1.0); GFR 82.1; POTASSIUM 4.1 mmol/L (3.5-5.1)
--- NOTE | 2020-08-12 12:52 | EKG ---
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
[2020-08-12 12:59] LABS: ALBUMIN 3.4 g/dL (3.4-5.0); ALBUMIN/GLOBULIN RATIO 0.8 (1.0-1.7); TOTAL BILIRUBIN 0.3 mg/dL (0.2-1.0); TOTAL PROTEIN 7.7 g/dL (6.4-8.2)
[2020-08-12] MEDS ORDERED: ONDANSETRON PF 4 MG/2 ML VIAL. IVP ONE (13:00)
[2020-08-12] MEDS ORDERED: ONDA4TAB12 PO (14:38)
[2020-08-12 15:33] LABS: BILIRUBIN,URINE NEG (NEG); CLARITY,URINE HAZY; COLOR,URINE YELLOW; GLUCOSE,URINE NEG (NEG); UROBILINOGEN,URINE 0.2 mg/dL (0.2 mg/dL)
[2020-08-12 15:34] LABS: BACTERIA,URINE MOD /HPF (0-FEW); NITRITE,URINE NEG (NEG); SQUAMOUS EPITHELIAL CELL,UR MANY /LPF
[2020-08-12 15:47] LABS: BARBITURATES NEG (NEG); BENZODIAZEPINES NEG (NEG); CANNABINOIDS POS (NEG); COCAINE NEG (NEG); METHADONE NEG (NEG); OPIATES NEG (NEG); PHENCYCLIDINE NEG (NEG)
[2020-08-12 15:49] LABS: AMPHETAMINE/METHAMPHETAMINE NEG (NEG)
[2020-08-12 18:55] VITALS: BP 134/68
== END 2020-08-12 14:55 | disposition home or self-care (01) ==
LOC: ER 12:08
DX: R11.15 Cyclical vomiting syndrome unrelated to migraine (principal); F17.210 Nicotine dependence, cigarettes, uncomplicated; F12.10 Cannabis abuse, uncomplicated; F41.9 Anxiety disorder, unspecified; F31.9 Bipolar disorder, unspecified; F10.20 Alcohol dependence, uncomplicated; Z90.49 Acquired absence of other specified parts of digestive tract; Z98.51 Tubal ligation status; Z98.890 Other specified postprocedural states; Y90.0 Blood alcohol level of less than 20 mg/100 ml
CPT/HCPCS: 36415; 70450; 80053; 80307; 81001; 81025; 83690; 84484; 85025; 87086; 93005; 96361; 96374; 99285; G0480; J2405; J7030; 99284-25

== ENCOUNTER 2020-10-10 13:38 | Emergency (ER) | payer SELFPAY ==
[~2020-10-10] VITALS: Ht 162.6 cm; Wt 109.1 kg
[~2020-10-10 13:38] MED LIST changes: +ONDA4TAB12 PO
--- NOTE | 2020-10-10 13:52 | PHYS DOC ---
Past History Past Medical History: Alcoholism, Anxiety, Bipolar, Depression, Other Additional Past Medical Histor: PTSD, MULTIPLE PERSONALITY DISORDER Past Surgical History: Cholecystectomy, , Tonsillectomy, Tubal ligation, Other Additional Past Surgical Histo: hernia repair Alcohol Use: Occasionally Drug Use: Marijuana General Adult HPI: HPI: 34-year-old female who presents for evaluation of midthoracic back pain that is dull and colicky, present for the last 2 days, ever since she had her 140 pound daughter step on her back to "pop" it. No focal weakness or paresthesia. No bowel/bladder dysfunction. Pain is worsened with movement. No other aggravating or alleviating factors. Review of Systems: Review of Systems: Gen: No fever, chills. CV: No CP, palpitations. Resp. No SOB, cough. GI: No abd pain, N/V. Neuro: No ROJAS, dizziness, weakness. MSK: No myalgia, arthralgia. Reports midthoracic back pain. Skin: No acute rash or lesion. Remainder of systems reviewed and negative unless otherwise specified. Allergies: Allergies: Allergies Coded Allergies Type Severity Reaction Last Updated Verified No Known Drug Allergies 08/12/20 No Physical Exam: PE: Gen: NAD. Well nourished. Head: NC/AT. Eyes: No scleral icterus. No conjunctival injection. ENT: MMM. Posterior OP clear. Neck: Supple. NT. CV: RRR. Peripheral pulses intact. Resp: CTAB. Abd: Soft. NT. ND. MSK: No peripheral cyanosis. No edema. Back: Midthoracic tenderness with paraspinal hypertonicity. No overlying skin changes. Neuro: A&Ox3. Strength & sensation grossly intact throughout. Skin. Warm. Dry. Psych: Appropriate mood & affect. EKG: EKG: [] Radiology/Procedures: Radiology/Procedures: CT thoracic spine without contrast 10/10/2020. No comparison available. CLINICAL INDICATION: Mid thoracic pain. TECHNIQUE: Contiguous axial imaging the thoracic spine performed with thin cut coronal and sagittal reconstruction. One or more of the following individualized dose reduction techniques were utilized for this examination: 1. Automated exposure control 2. Adjustment of the mA and/or kV according to patient size 3. Use of iterative reconstruction technique. FINDINGS: Sagittal alignment is anatomic. Vertebral body heights are maintained. Posterior elements are intact. No evidence of fracture. Mild endplate hypertrophic changes throughout. Mild multilevel facet hypertrophic change. No apparent focal disc herniation. The bony canal and foramen are adequate. Imaged portions the pulmonary parenchyma unremarkable. No apparent soft tissue abnormality. IMPRESSION: 1. No evidence of fracture or malalignment. 2. Mild multilevel thoracic spondylosis. Electronically signed by: Antelmo Merrill MD (10/10/2020 4:05 PM) [facility] Heart Score: C/O Chest Pain: N/A Risk Factors: Risk Factors: DM, Current or recent (<one month) smoker, HTN, HLP, family history of CAD, obesity. Risk Scores: Score 0 - 3: 2.5% MACE over next 6 weeks - Discharge Home Score 4 - 6: 20.3% MACE over next 6 weeks - Admit for Clinical Observation Score 7 - 10: 72.7% MACE over next 6 weeks - Early Invasive Strategies Course & Med Decision Making: Course & Med Decision Making Pertinent Labs and Imaging studies reviewed. (See chart for details) In summary, 34-year-old female who presents for evaluation of 2 days of mid thoracic back pain after she had her daughter stepped on her back to "pop it". No focal neurological deficits. No clinical signs or symptoms for acute compressive myelopathy. CT thoracic spine negative for acute traumatic pathology. She will discharged home with outpatient follow-up and symptomatic treatment of presumed thoracic contusion. Return precautions given. Denisha Disclaimer: Denisha Disclaimer: This electronic medical record was generated, in whole or in part, using a voice recognition dictation system. Departure Departure: Impression: Primary Impression: Thoracic back sprain Disposition: 01 DC HOME SELF CARE/HOMELESS Condition: STABLE Referrals: PCP,NO (PCP) Patient Instructions: Thoracic Strain, [id number] Scripts Cyclobenzaprine Hcl (CYCLOBENZAPRINE HCL) 10 Mg Tablet 1 TAB PO TID for muscle pain/spasm, #30 TAB Prov: LE,AVEL H DO 10/10/20 Lidocaine (Lidocaine PATCH ) 1 Each Adh..patch 1 EACH TP DAILY for FOR LOCAL PAIN, #10 PATCH REMOVE AFTER 12 HOURS Prov: LE,AVEL H DO 10/10/20 LE,AVEL H DO Oct 10, 2020 13:52
[2020-10-10] MEDS: MORPHINE SULFATE 4 MG/ML DISP.SYRIN. IM ONE (14:03)
[2020-10-10] MEDS: CYCLOBENZAPRINE 10 MG TABLET. PO ONE (14:03)
[2020-10-10] MEDS: LIDOCAINE (700MG/PATCH) PATCH. TD ONE (14:03)
--- NOTE | 2020-10-10 16:07 | RAD ---
CT thoracic spine without contrast 10/10/2020. No comparison available. CLINICAL INDICATION: Mid thoracic pain. TECHNIQUE: Contiguous axial imaging the thoracic spine performed with thin cut coronal and sagittal reconstructi on. One or more of the following individualized dose reduction techniques were utilized for this examinat ion: 1. Automated exposure control 2. Adjustment of the mA and/or kV according to patient size 3. Use of iterative reconstruction technique. FINDINGS: Sagittal alignment is anatomic. Vertebral body heights are maintained. Posterior elements are intact. No evidence of fracture. Mild endplate hypertrophic changes throughout. Mild multilevel facet hypertrophic change. No apparent focal disc herniation. The bony canal and foramen are adequate. Imaged portions the pulmonary parenchyma unremarkable. No apparent soft tissue abnormality. IMPRESSION: 1. No evidence of fracture or malalignment. 2. Mild multilevel thoracic spondylosis. Electronically signed by: Antelmo Merrill MD (10/10/2020 4:05 PM) [facility]
[2020-10-10] MEDS ORDERED: CYCL-331 PO (16:28)
[2020-10-10] MEDS ORDERED: LIDO700A21 TP (16:28)
[2020-10-10 16:44] VITALS: BP 129/87
== END 2020-10-10 17:05 | disposition home or self-care (01) ==
LOC: ER 13:38
DX: S23.3XXA Sprain of ligaments of thoracic spine, initial encounter (principal); F10.20 Alcohol dependence, uncomplicated; F41.9 Anxiety disorder, unspecified; F31.9 Bipolar disorder, unspecified; F43.10 Post-traumatic stress disorder, unspecified; Z90.49 Acquired absence of other specified parts of digestive tract; Z98.890 Other specified postprocedural states; Z98.51 Tubal ligation status; Y90.9 Presence of alcohol in blood, level not specified; X50.9XXA Other and unspecified overexertion or strenuous movements or postures, initial encounter; Y93.89 Activity, other specified; Y92.89 Other specified places as the place of occurrence of the external cause; Y99.8 Other external cause status
CPT/HCPCS: 72128; 96372; 99285; J2270

== ENCOUNTER 2020-10-16 18:04 | Emergency (ER) | payer SELFPAY ==
[~2020-10-16] VITALS: Ht 162.6 cm; Wt 109.1 kg
[~2020-10-16 18:04] MED LIST changes: +CYCL-331 PO; +LIDO700A21 TP
[2020-10-16 18:47] VITALS: BP 130/79
[2020-10-16] MEDS ORDERED: ACETAMINOPHEN 500 MG TABLET PO ONE (19:00)
[2020-10-16] MEDS ORDERED: IBUPROFEN 600 MG TABLET. PO ONE (19:15)
--- NOTE | 2020-10-16 19:21 | PHYS DOC ---
Past History Past Medical History: Alcoholism, Anxiety, Bipolar, Depression, Other Additional Past Medical Histor: PTSD, MULTIPLE PERSONALITY DISORDER Past Surgical History: Cholecystectomy, , Tonsillectomy, Tubal ligation, Other Additional Past Surgical Histo: hernia repair Alcohol Use: Occasionally Drug Use: Marijuana Adult General Chief Complaint Chief Complaint: SHOUDLER HPI HPI Patient is a 34-year-old female presents with left shoulder pain. States that 2 weeks ago, she was getting a massage from her daughter and when her daughter stood up she stepped on her shoulder blade and has had intermittent, pain ever since then, 5 out of 10, dull and achy in nature. Denies any other injuries. Denies loss of functionality of the arm. States she called the on-call nurse line and was told to come to the emergency department. Review of Systems Review of Systems Review of systems otherwise unremarkable except noted in HPI Current Medications Current Medications Current Medications Medications (Trade) Dose Ordered Sig/Pantera Start Time Stop Time Status Last Admin Dose Admin Acetaminophen (Tylenol) 1,000 mg 1X ONCE 10/16/20 19:00 10/16/20 19:01 DC 10/16/20 19:08 1,000 MG Ibuprofen (Motrin) 600 mg 1X ONCE 10/16/20 19:15 10/16/20 19:16 UNV Allergies Allergies Allergies Coded Allergies Type Severity Reaction Last Updated Verified No Known Drug Allergies 08/12/20 No Physical Exam Physical Exam Constitutional: Well developed, well nourished, no acute distress, non-toxic appearance. [] HENT: Normocephalic, atraumatic, bilateral external ears normal, oropharynx moist, no oral exudates, nose normal. [] Neck: Normal range of motion, no tenderness, supple, no stridor. [] Cardiovascular:Heart rate regular rhythm, no murmur [] Lungs & Thorax: Bilateral breath sounds clear to auscultation [] Back: No tenderness, Extremities: Tenderness at the superior portion of the left shoulder with no obvious deformities, bruising. Neurovascular exam intact. Range of motion intact. Neurologic: Alert and oriented X 3, normal motor function, normal sensory function, no focal deficits noted. [] Psychologic: Affect normal, judgement normal, mood normal. [] Current Patient Data Vital Signs Vital Signs Date Time Temp Pulse Resp B/P (MAP) Pulse Ox O2 Delivery O2 Flow Rate FiO2 10/16/20 18:47 99.3 82 16 130/79 (96) 97 Room Air EKG EKG [] Radiology/Procedures Radiology/Procedures [] Heart Score C/O Chest Pain: No Risk Factors: Risk Factors: DM, Current or recent (<one month) smoker, HTN, HLP, family history of CAD, obesity. Risk Scores: Risk Factors: DM, Current or recent (<one month) smoker, HTN, HLP, family history of CAD, obesity. Course & Med Decision Making Course & Med Decision Making Patient is a 34-year-old female presents with left shoulder pain Vital signs not concerning. Physical exam noted above. Patient given Tylenol, ibuprofen and ice pack. Imaging not concerning for acute osseous abnormality. Put patient on splinting for comfort. Advised to call primary care physician first thing in the morning to update on ED visit and set up a follow-up. Gave return precautions to the ED. Patient grateful, verbalized understanding and agreed with plan of discharge. [] Dragon Disclaimer Dragon Disclaimer This electronic medical record was generated, in whole or in part, using a voice recognition dictation system. Departure Departure: Impression: Primary Impression: Shoulder pain, left Disposition: 01 DC HOME SELF CARE/HOMELESS Condition: GOOD Referrals: PCP,NO (PCP) FREIDA RAMOS MD Patient Instructions: RICE - Routine Care for Injuries, [id number] Additional Instructions: Please read all of the attached information. Your x-ray was not concerning for fracture or dislocation. Please wear your sling as needed for comfort. You can use Tylenol, ibuprofen and ice at home as needed. Please call your primary care physician first thing in the morning to update on ED visit and set up a follow-up visit. Please come back to the ED with new or concerning symptoms. LYNETTE HIGGINS MD Oct 16, 2020 19:21
--- NOTE | 2020-10-16 19:21 | RAD ---
Three views left shoulder History: Pain for 2 weeks Internally and externally rotated AP of shoulder obtained, as well as "Y" view. The glenohumeral relationship is normal. The visualized osseous structures appear normal. Impression: No acute findings. end impression Electronically signed by: Deepak Kellogg III, MD (10/16/2020 7:19 PM) [facility]
== END 2020-10-16 19:46 | disposition home or self-care (01) ==
LOC: ER 18:04
DX: M25.512 Pain in left shoulder (principal); G89.11 Acute pain due to trauma; F31.9 Bipolar disorder, unspecified; F43.10 Post-traumatic stress disorder, unspecified; W22.8XXA Striking against or struck by other objects, initial encounter; Y93.89 Activity, other specified; Y92.89 Other specified places as the place of occurrence of the external cause; Y99.8 Other external cause status
CPT/HCPCS: 73030; 99283

== ENCOUNTER 2021-01-07 22:13 | Emergency (ER) | payer OTHER ==
[~2021-01-07] VITALS: Ht 162.6 cm; Wt 109.1 kg
--- NOTE | 2021-01-07 23:02 | PHYS DOC ---
Past History Past Medical History: Alcoholism, Anxiety, Arthritis, Bipolar, Depression, Sciatica, Other Additional Past Medical Histor: PTSD, MULTIPLE PERSONALITY DISORDER , borderline personality Past Surgical History: Cholecystectomy, , Tonsillectomy, Tubal ligation, Other Additional Past Surgical Histo: hernia repair Alcohol Use: Occasionally Drug Use: Marijuana General Adult EDM: Chief Complaint: BACK PAIN OR INJURY HPI: HPI: " " My back been hurting bad.. and my back feels like it is hot.. I go to [place] [facility].. and also see Maverick.. My friend said with the changes.. I need to be seen again tonight..." Patient is a 35 year old female who presents with above hx and complaints of low back pain and sciatica exacerbation. Patient denies any new trauma. Patient denies any any problems with defecation or urination. Patient states she has had chronic low back problems for 3 to 4 years. But seems to be much more painful tonight. Patient denies any history of fever or chills. Patient denies any history of cancer. Patient denies any history immunosuppression. Patient denies any history of IV drug use. Patient does admit to tobacco and marijuana use. Patient currently following with pain center in [facility] and with Dr. Temple. Patient has a past medical history of alcoholism, anxiety disorder, bipolar, depression, PTSD, multiple personality disorder, borderline personality, and has exhibited possible drug-seeking behaviors. Review of Systems: Review of Systems: Constitutional: Denies fever or chills Eyes: Denies change in visual acuity HENT: Denies nasal congestion or sore throat Respiratory: Denies cough or shortness of breath Cardiovascular: Denies chest pain or edema GI: Denies abdominal pain, nausea, vomiting, bloody stools or diarrhea : Denies dysuria Musculoskeletal: Complains of back pain and sciatica Integument: Denies rash Neurologic: Denies headache, focal weakness or sensory changes Endocrine: Denies polyuria or polydipsia Lymphatic: Denies swollen glands Psychiatric: Denies depression or anxiety Family History: Family History: Noncontributory to presentation-mother and father are both alive. History of 2 children that are well and no health issues Current Medications: Current Meds: See nursing for home medications Allergies: Allergies: Allergies Coded Allergies Type Severity Reaction Last Updated Verified No Known Drug Allergies 08/12/20 No Physical Exam: PE: Constitutional: , no acute distress, non-toxic appearance. [] HENT: Normocephalic, atraumatic, bilateral external ears normal, oropharynx moist, no oral exudates, nose normal. [] Eyes: PERRLA, EOMI, conjunctiva normal, no discharge. [] Neck: Normal range of motion, no tenderness, supple, no stridor. [] Cardiovascular:Heart rate regular rhythm, no murmur [] Lungs & Thorax: Bilateral breath sounds equal apex with scattered wheezes auscultation [] Abdomen: Bowel sounds normal, soft, no tenderness, no masses, no pulsatile masses. Old surgery scars. Nose saddle loss reported Skin: Warm, dry, no erythema, no rash. [] Back: Lumbar sacral muscle and sciatic nerve tenderness, no CVA tenderness. [] Extremities: No tenderness, no cyanosis, no clubbing, ROM intact, no edema. No cording appreciated Neurologic: Alert and oriented X 3, normal motor function, normal sensory function, no focal deficits noted. [] DTRs +2 patella and Achilles. Psychologic: Affect anxious, judgement normal, mood normal. [] EKG: EKG: [] Radiology/Procedures: Radiology/Procedures: Patient defers x-rays or CT evaluation at this time [] Heart Score: C/O Chest Pain: N/A Risk Factors: Risk Factors: DM, Current or recent (<one month) smoker, HTN, HLP, family history of CAD, obesity. Risk Scores: Score 0 - 3: 2.5% MACE over next 6 weeks - Discharge Home Score 4 - 6: 20.3% MACE over next 6 weeks - Admit for Clinical Observation Score 7 - 10: 72.7% MACE over next 6 weeks - Early Invasive Strategies Course & Med Decision Making: Course & Med Decision Making Pertinent Labs and Imaging studies reviewed. (See chart for details) Take Tylenol and ibuprofen for pain. Use ice packs as needed. Keep follow-up with primary care and pain clinic. Patient did receive injections of Toradol, Norflex, and Depo-Medrol. At time of discharge patient reported marked improvement of her sciatic pain. Patient encouraged to keep follow-ups with her pain center and primary care. Return if any concerns. Impression: 1. Exacerbation of chronic back pain and sciatica 2. Does appear to exhibit possible drug-seeking behaviors. 3. History of depression 4. History of bipolar disorder 5. History of suicidal ideation 6. History of alcoholism 7. History of COPD 8. History of marijuana and tobacco use 9. History of PT SD 10. History of multiple personality disorder 11. History of borderline personality 12. History of noncompliance [] Dragon Disclaimer: Dragon Disclaimer: This electronic medical record was generated, in whole or in part, using a voice recognition dictation system. Departure Departure: Referrals: PCP,UNKNOWN (PCP) Dragon Disclaimer This chart was dictated in whole or in part using Voice Recognition software in a busy, high-work load, and often noisy Emergency Department environment. It may contain unintended and wholly unrecognized errors or omissions. Dragon Disclaimer This chart was dictated in whole or in part using Voice Recognition software in a busy, high-work load, and often noisy Emergency Department environment. It ma y contain unintended and wholly unrecognized errors or omissions. LINK MONTOYA MD Jan 07, 2021 23:01
[2021-01-07] MEDS ORDERED: ORPHENADRINE CITRATE 60 MG/2 ML VIAL. IM ONE (23:15)
[2021-01-07] MEDS ORDERED: KETOROLAC 60 MG/2 ML VIAL. IM ONE (23:15)
[2021-01-08 00:19] LABS: BILIRUBIN,URINE NEG (NEG); CLARITY,URINE HAZY; COLOR,URINE YELLOW; GLUCOSE,URINE NEG (NEG)
[2021-01-08 00:20] LABS: BACTERIA,URINE 0 /HPF (0-FEW); NITRITE,URINE NEG (NEG); RBC,URINE >40 /HPF (0-2); SQUAMOUS EPITHELIAL CELL,UR FEW /LPF; UROBILINOGEN,URINE 0.2 mg/dL (0.2 mg/dL); WBC,URINE OCC /HPF (0-4)
[2021-01-08 00:27] LABS: BARBITURATES NEG (NEG); BENZODIAZEPINES NEG (NEG); CANNABINOIDS POS (NEG); COCAINE NEG (NEG); METHADONE NEG (NEG); OPIATES NEG (NEG); PHENCYCLIDINE NEG (NEG)
[2021-01-08 00:32] LABS: AMPHETAMINE/METHAMPHETAMINE NEG (NEG)
[2021-01-08] MEDS ORDERED: methylPREDNISolone ACETATE 40 MG/ML VIAL. IM ONE (01:15)
[2021-01-08 02:05] VITALS: BP 136/89
== END 2021-01-08 02:05 | disposition home or self-care (01) ==
LOC: ER 22:13
DX: M54.40 Lumbago with sciatica, unspecified side (principal); F31.9 Bipolar disorder, unspecified; J44.9 Chronic obstructive pulmonary disease, unspecified; F44.81 Dissociative identity disorder; F60.3 Borderline personality disorder; F10.20 Alcohol dependence, uncomplicated; F41.9 Anxiety disorder, unspecified; M19.90 Unspecified osteoarthritis, unspecified site; F43.10 Post-traumatic stress disorder, unspecified; Y90.0 Blood alcohol level of less than 20 mg/100 ml
CPT/HCPCS: 36415; 80307; 81001; 96372; 99284; J1030; J1885; J2360

== ENCOUNTER 2021-02-16 09:37 | Emergency (ER) | payer OTHER ==
[~2021-02-16] VITALS: Ht 162.6 cm; Wt 109.1 kg
[2021-02-16 09:53] VITALS: BP 145/89
--- NOTE | 2021-02-16 10:17 | PHYS DOC ---
Past History Past Medical History: Alcoholism, Anxiety, Arthritis, Bipolar, Depression, Sciatica, Other Additional Past Medical Histor: PTSD, MULTIPLE PERSONALITY DISORDER , borderline personality Past Surgical History: Cholecystectomy, , Tonsillectomy, Tubal ligation, Other Additional Past Surgical Histo: hernia repair Alcohol Use: Occasionally Drug Use: Marijuana General Adult EDM: Chief Complaint: CHEST PAIN HPI: HPI: Patient is a 35-year-old female presents to the ER today for generalized chest heaviness that started 1 hour prior to arrival. Patient rates pain 7 out of 10. It does not radiate. Patient is also reporting shortness of breath. She repo rts that the pain is worse with deep inspiration. Patient has a history of asthma but has not followed up with her primary care provider to perform pulmonary function test. Patient denies cough, fever, chills, loss of taste or smell, nausea, vomiting, diarrhea. Patient reports that she has a positive Covid exposure but had a negative test last weekend. Review of Systems: Review of Systems: 14 body systems of the review of systems have been reviewed. See HPI for pertinent positive and negative responses, otherwise all other systems are negative, nonpertinent or noncontributory Allergies: Allergies: Allergies Coded Allergies Type Severity Reaction Last Updated Verified No Known Drug Allergies 08/12/20 No Physical Exam: PE: Constitutional: Well developed, well nourished, no acute distress, non-toxic appearance. [] HENT: Normocephalic, atraumatic Eyes: PERRL, conjunctiva normal, no discharge. [] Neck: Normal range of motion, no tenderness, supple, no stridor. [] Cardiovascular:Heart rate regular rhythm, no murmur [] Lungs & Thorax: Bilateral breath sounds clear to auscultation [] Abdomen: Bowel sounds normal, soft, no tenderness, no masses, no pulsatile masses. [] Skin: Warm, dry, no erythema, no rash. [] Back: Normal range of motion Extremities: No tenderness, no cyanosis, no clubbing, ROM intact, no edema. [] Neurologic: Alert and oriented X 3, normal motor function, normal sensory function, no focal deficits noted. [] Psychologic: Affect normal, judgement normal, mood normal. [] Current Patient Data: Labs: Laboratory Tests Test 02/16/21 10:08 White Blood Count 7.0 x10^3/uL Red Blood Count 4.48 x10^6/uL Hemoglobin 13.1 g/dL Hematocrit 39.0 % Mean Corpuscular Volume 87 fL Mean Corpuscular Hemoglobin 29 pg Mean Corpuscular Hemoglobin Concent 34 g/dL Red Cell Distribution Width 14.1 % Platelet Count 249 x10^3/uL Neutrophils (%) (Auto) 54 % Lymphocytes (%) (Auto) 35 % Monocytes (%) (Auto) 8 % Eosinophils (%) (Auto) 2 % Basophils (%) (Auto) 1 % Neutrophils # (Auto) 3.7 x10^3uL Lymphocytes # (Auto) 2.4 x10^3/uL Monocytes # (Auto) 0.6 x10^3/uL Eosinophils # (Auto) 0.2 x10^3/uL Basophils # (Auto) 0.1 x10^3/uL Sodium Level 138 mmol/L Potassium Level 3.8 mmol/L Chloride Level 103 mmol/L Carbon Dioxide Level 29 mmol/L Anion Gap 6 Blood Urea Nitrogen 9 mg/dL Creatinine 0.7 mg/dL Estimated GFR (Cockcroft-Gault) 95.2 BUN/Creatinine Ratio 13 Glucose Level 137 mg/dL Calcium Level 8.2 mg/dL Total Bilirubin 0.2 mg/dL Aspartate Amino Transf (AST/SGOT) 17 U/L Alanine Aminotransferase (ALT/SGPT) 28 U/L Alkaline Phosphatase 102 U/L Troponin I Quantitative < 0.017 ng/mL Total Protein 6.9 g/dL Albumin 3.1 g/dL Albumin/Globulin Ratio 0.8 Vital Signs: Vital Signs Date Time Temp Pulse Resp B/P (MAP) Pulse Ox O2 Delivery O2 Flow Rate FiO2 02/16/21 09:53 97.9 99 16 145/89 98 Room Air EKG: EKG: EKG performed by ER staff at 945 shows sinus rhythm with an incomplete bundle branch block, no STEMI as read by Dr. Aguirre at 1005. [] Radiology/Procedures: Radiology/Procedures: PROCEDURE: CHEST AP ONLY EXAM: Chest, single view. HISTORY: Chest pain. Shortness of breath. COMPARISON: 06/10/2020 FINDINGS: A frontal view of the chest is obtained. There is no infiltrate, pleural effusion or pneumothorax. The heart is stable in size. IMPRESSION: No acute pulmonary finding. Electronically signed by: Pat Fox MD (02/16/2021 10:24 AM) [id number] DICTATED AND SIGNED BY: PAT FOX MD DATE: 02/16/21 1024 CC: LONG WINSTON APRN; CHLOE WALSH ~MTH0 0 [] Heart Score: C/O Chest Pain: Yes HEART Score for Chest Pain: HEART Score for Chest Pain Response (Comments) Value History Slighlty/Non-Suspicious 0 ECG Normal 0 Age < 45 0 Risk Factors 1 or 2 Risk Factors 1 Troponin < Normal Limit 0 Total 1 Risk Factors: Risk Factors: DM, Current or recent (<one month) smoker, HTN, HLP, family history of CAD, obesity. Risk Scores: Score 0 - 3: 2.5% MACE over next 6 weeks - Discharge Home Score 4 - 6: 20.3% MACE over next 6 weeks - Admit for Clinical Observation Score 7 - 10: 72.7% MACE over next 6 weeks - Early Invasive Strategies Course & Med Decision Making: Course & Med Decision Making Pertinent Labs and Imaging studies reviewed. (See chart for details) [] Patient is a 35-year-old female being seen in the ER for generalized chest heaviness worse with inspiration and shortness of breath. Work-up in the ER consisted of blood work, EKG, chest x-ray. Patient was requesting to be tested for COVID-19, she was tested in the ER and will be notified of her results when they become available. Work-up in the ER was unremarkable. Patient has a heart score of 1 due to obesity. I discussed with patient all findings and diagnostic testing as well as the need to follow-up with PCP for further evaluation and treatment or return to the ER if any new or worsening symptoms. Strict return precautions were also discussed at length. Patient voiced u nderstanding and agreement with the plan. Patient is hemodynamically stable at the time of disposition. Dragon Disclaimer: Dragon Disclaimer: This electronic medical record was generated, in whole or in part, using a voice recognition dictation system. Departure Departure: Impression: Primary Impression: Chest wall pain Disposition: HOME / SELF CARE / HOMELESS Condition: GOOD Referrals: CHLOE WALSH (PCP) Patient Instructions: Pleurisy Additional Instructions: You were seen in the ER today for generalized chest heaviness with shortness of breath. Your work-up in the ER was unremarkable. Your physical exam was reassuring. We tested you for COVID-19 given your positive Covid exposures. You will be notified of these results when they become available. Please self isolate until you receive these results. You can take Tylenol/ibuprofen for pain. Follow-up with your primary care provider tomorrow regarding your ER visit. Continue taking your asthma medications as previously prescribed by your PCP. If you develop worsening of your chest pain, worsening shortness of breath, high fevers refractory to treatment, severe cough please return to the ER. EMERGENCY DEPARTMENT GENERAL DISCHARGE INSTRUCTIONS Thank you for coming to [facility] (ED) today and trusting us with you care. We trust that you had a positivie experience in our Emergency Department. If you wish to speak to the department management, you may call the director at [phone]. YOUR FOLLOW UP INSTRUCTIONS ARE FOLLOWS: 1. Do you have a private Doctor? If you do not have a private doctor, please ask for a resource list of physicians or clinics that may be able to assist you with follow up care. 2. The Emergency Physician has interpreted your x-rays. The X-Ray specialist will also review them. If there is a change in the findings, you will be notified in 48 hours when at all possible. 3. A lab test or culture has been done, your results will be reviewed and you will be notified if you need a change in treatment. ADDITIONAL INSTRUCTIONS AND INFORMATION: 1. Your care today has been supervised by a physician who is specially trained in emergency care. Many problems require more than one evaluation for a complete diagnosis and treatment. We recommend that you schedule your follow up appointment as recommended to ensure complete treatment of you illness or injury. If you are unable to obtain follow up care and continue to have a problem, or if your condition worsens, we recommend that you return to the ED. 2. We are not able to safely determine your condition over the phone nor are we able to give sound medical advice over the phone. For these safety reasons, if you call for medical advice we will ask you to come to the ED for further evaluation. 3. If you have any questions regarding these discharge instructions please call the ED at [phone]. SAFETY INFORMATION: In the interest of safety, wellness, and injury prevention; we encourage you to wear your sealbelt, if you smoke; quite smoking, and we encourage family to use a protective helmet for bicycling and other sporting events that present an increased risk for head injury. IF YOUR SYMPTOMS WORSEN OR NEW SYMPTOMS DEVELOP, OR YOU HAVE CONCERNS ABOUT YOUR CONDITION; OR IF YOUR CONDITION WORSENS WHILE YOU ARE WAITING FOR YOUR FOLLOW UP APPOINTMENT; EITHER CONTACT YOUR PRIMARY CARE DOCTOR, THE PHYSICIAN WHOSE NAME AND NUMBER YOU WERE GIVEN, OR RETURN TO THE ED IMMEDIATELY. LONG WINSTON APRN Feb 16, 2021 10:16
--- NOTE | 2021-02-16 10:26 | RAD ---
EXAM: Chest, single view. HISTORY: Chest pain. Shortness of breath. COMPARISON: 06/10/2020 FINDINGS: A frontal view of the chest is obtained. There is no infiltrate, pleural effusion or pneumo thorax. The heart is stable in size. IMPRESSION: No acute pulmonary finding. Electronically signed by: Pat Alejandre MD (02/16/2021 10:24 AM) [id number]
[2021-02-16 10:28] LABS: BASO # 0.1 x10^3/uL (0.0-0.2); BASO % 1 % (0-3); EOS # 0.2 x10^3/uL (0.0-0.7); EOS % 2 % (0-3); HEMOGLOBIN 13.1 g/dL (12.0-15.5); LYMPH # 2.4 x10^3/uL (1.0-4.8); LYMPH % 35 % (24-48); MEAN CORPUSCULAR HEMOGLOBIN 29 pg (25-35); MEAN CORPUSCULAR HGB CONC 34 g/dL (31-37); MEAN CORPUSCULAR VOLUME 87 fL (79-100); MONO # 0.6 x10^3/uL (0.0-1.1); MONO % 8 % (0-9); NEUT # 3.7 x10^3uL (1.8-7.7); NEUT % 54 % (31-73); PLATELET COUNT 249 x10^3/uL (140-400); RED BLOOD COUNT 4.48 x10^6/uL (3.50-5.40); RED CELL DISTRIBUTION WIDTH 14.1 % (11.5-14.5)
[2021-02-16 10:35] LABS: CALCIUM 8.2 mg/dL (8.5-10.1); CREATININE 0.7 mg/dL (0.6-1.0); GFR 95.2; POTASSIUM 3.8 mmol/L (3.5-5.1)
[2021-02-16 10:41] LABS: ALBUMIN 3.1 g/dL (3.4-5.0); ALBUMIN/GLOBULIN RATIO 0.8 (1.0-1.7); TOTAL BILIRUBIN 0.2 mg/dL (0.2-1.0); TOTAL PROTEIN 6.9 g/dL (6.4-8.2)
--- NOTE | 2021-02-16 11:44 | EKG ---
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
== END 2021-02-16 11:36 | disposition home or self-care (01) ==
LOC: ER 09:37
DX: R07.89 Other chest pain (principal); F12.10 Cannabis abuse, uncomplicated; Z90.49 Acquired absence of other specified parts of digestive tract; Z98.51 Tubal ligation status; Z20.822 Contact with and (suspected) exposure to COVID-19
CPT/HCPCS: 71045; 80053; 84484; 85025; 93005; 99285; C9803; U0003

== ENCOUNTER 2021-05-30 22:22 | Emergency (ER) | payer OTHER ==
[~2021-05-30] VITALS: Ht 162.6 cm; Wt 111.3 kg
[~2021-05-30 22:22] MED LIST changes: -CYCL-331 PO; +CYCL10TA19 PO
--- NOTE | 2021-05-30 22:34 | PHYS DOC ---
Past History Past Medical History: Alcoholism, Anxiety, Arthritis, Bipolar, Depression, Sciatica, Other Additional Past Medical Histor: PTSD, MULTIPLE PERSONALITY DISORDER , borderline personality Past Surgical History: Cholecystectomy, , Tonsillectomy, Tubal ligation, Other Additional Past Surgical Histo: hernia repair Alcohol Use: Occasionally Drug Use: Marijuana Adult General [facility] HPI Patient is a 35-year-old female who presents with a chief complaint of left ankle pain after twisting and falling in her house just before coming to the emergency department after getting home, rating the pain at 7 out of 10, dull and achy in nature with no radiation. States she is able to walk but it causes her discomfort. Denies any other injuries. States she did not take any medications. Review of Systems Review of Systems Review of systems otherwise unremarkable except noted in HPI Allergies Allergies Allergies Coded Allergies Type Severity Reaction Last Updated Verified No Known Drug Allergies 08/12/20 No Physical Exam Physical Exam Constitutional: Well developed, well nourished, no acute distress, non-toxic appearance. [] HENT: Normocephalic, atraumatic, Eyes: conjunctiva normal, no discharge. [] Skin: Warm, dry, no erythema, no rash. [] Back: No tenderness, Extremities: Tenderness around the ankle with possible mild swelling, no bruising, no deformities, neurovascular exam intact Neurologic: Alert and oriented X 3, normal motor function, normal sensory function, able to sit, stand and walk, no focal deficits noted. [] Psychologic: Affect normal, judgement normal, mood normal. [] EKG EKG [] Radiology/Procedures Radiology/Procedures [] EXAM: 1. Left tibia/fibula 2 views. 2. Left ankle 3 views.. HISTORY: Fall, pain. COMPARISON: None. FINDINGS: No acute fractures are identified. An ossicle at the tip of the medial malleolus is consistent with a chronic ligamentous injury. The joint spaces and alignment of the knee and ankle appear maintained. There is a small plantar calcaneal spur. IMPRESSION: 1. No fracture. Electronically signed by: Amarjit Porter MD (05/30/2021 11:06 PM) [facility] Heart Score C/O Chest Pain: No Risk Factors: Risk Factors: DM, Current or recent (<one month) smoker, HTN, HLP, family history of CAD, obesity. Risk Scores: Risk Factors: DM, Current or recent (<one month) smoker, HTN, HLP, family history of CAD, obesity. Course & Med Decision Making Course & Med Decision Making Patient is a 35-year-old female presents with left ankle pain Vital signs not concerning. Physical exam noted above. Given Tylenol and ice pack. Imaging with no acute osseous abnormalities. Discussed all findings with patient. Placed in Jonatan wrap. Discussed symptom management at home. Advised follow-up in the morning with primary care physician. Gave return precautions to the ED. Patient grateful, verbalized understanding and agree with plan of discharge. [] Dragon Disclaimer Dragon Disclaimer This electronic medical record was generated, in whole or in part, using a voice recognition dictation system. Departure Departure: Impression: Primary Impression: Ankle pain Additional Impression: Ankle sprain Disposition: HOME / SELF CARE / HOMELESS Condition: GOOD Referrals: CHLOE WALSH (PCP) Patient Instructions: RICE - Routine Care for Injuries Additional Instructions: Thank you for coming into the emergency department tonight and allowing us to take care of you. Please read the attached information carefully to go over some of the things we discussed. Please continue a Tylenol, ibuprofen and ice regimen as needed and discussed. Please follow-up with your primary care physician in the morning to update on your ED visit and set up a follow-up appointment as soon as you can for reevaluation. Problem Qualifiers LYNETTE HIGGINS MD May 30, 2021 22:34
[2021-05-30] MEDS ORDERED: ACETAMINOPHEN 500 MG TABLET PO ONE (23:00)
--- NOTE | 2021-05-30 23:08 | RAD ---
EXAM: 1. Left tibia/fibula 2 views. 2. Left ankle 3 views.. HISTORY: Fall, pain. COMPARISON: None. FINDINGS: No acute fractures are identified. An ossicle at the tip of the medial malleolus is consist ent with a chronic ligamentous injury. The joint spaces and alignment of the knee and ankle appear ma intained. There is a small plantar calcaneal spur. IMPRESSION: 1. No fracture. Electronically signed by: Amarjit Porter MD (05/30/2021 11:06 PM) [facility]
[2021-05-30 23:49] VITALS: BP 121/64
== END 2021-05-30 23:53 | disposition home or self-care (01) ==
LOC: ER 22:22
DX: S93.402A Sprain of unspecified ligament of left ankle, initial encounter (principal); F10.20 Alcohol dependence, uncomplicated; F41.9 Anxiety disorder, unspecified; M19.90 Unspecified osteoarthritis, unspecified site; F31.9 Bipolar disorder, unspecified; W18.39XA Other fall on same level, initial encounter; Y93.89 Activity, other specified; Y92.098 Other place in other non-institutional residence as the place of occurrence of the external cause; Y99.8 Other external cause status
CPT/HCPCS: 73590; 73610; 99284

== ENCOUNTER 2021-07-19 22:00 | Emergency (ER) | payer OTHER ==
[~2021-07-19] VITALS: Ht 162.6 cm; Wt 113.6 kg
--- NOTE | 2021-07-19 22:29 | PHYS DOC ---
Past History Past Medical History: Alcoholism, Anxiety, Arthritis, Bipolar, Depression, Sciatica, Other Additional Past Medical Histor: PTSD, MULTIPLE PERSONALITY DISORDER , borderline personality Past Surgical History: No Surgical History Additional Past Surgical Histo: hernia repair Alcohol Use: None Drug Use: Marijuana General Adult HPI: HPI: ".. I ve been hurting here in my back .. since Sat. . I did nt fall or any thing.. .. I ve had some back pain in past .. but not this bad... " Patient is a 35 year old female who presents with above hx and complaints of back pain x 5 days. Pain is somewhat reproducible with deep breaths and coughing. Patient denies any recent travel. No specific ill contacts. No history of trauma. Patient does have past history of alcohol abuse, alcoholism, bipolar disorder, depression, drug overdose, tobacco use, suicide attempts, chronic bronchitis, COPD, chronic pain, bipolar disorder, multiple personality disorder, anxiety, PTSD, history of chronic pain and a history of sciatica. Pt. follows with Dr. Perez. Patient has elected not to get a flu vaccination or Covid vaccination. Denies any IV drug use. Patient denies any cancer. Review of Systems: Review of Systems: Constitutional: Denies fever or chills Eyes: Denies change in visual acuity HENT: Denies nasal congestion or sore throat Respiratory: History of a nonproductive cough Cardiovascular: Denies chest pain or edema GI: Denies abdominal pain, nausea, vomiting, bloody stools or diarrhea : Denies dysuria Musculoskeletal: Complains of lower thoracic and upper lumbar back pain Integument: Denies rash Neurologic: Denies headache, focal weakness or sensory changes Endocrine: Denies polyuria or polydipsia Lymphatic: Denies swollen glands Psychiatric: Denies depression or anxiety Family History: Family History: Noncontributory to presentation. Parents are alive and in their 50s patient's. Patient's had 2 children age and 14 and 16 Current Medications: Current Meds: See nursing for home meds Allergies: Allergies: Allergies Coded Allergies Type Severity Reaction Last Updated Verified No Known Drug Allergies 08/12/20 No Physical Exam: PE: Constitutional: Moderate acute distress, non-toxic appearance. [] HENT: Normocephalic, atraumatic, bilateral external ears normal, oropharynx moist, no oral exudates, nose normal. [] Eyes: PERRLA, EOMI, conjunctiva normal, no discharge. [] Neck: Normal range of motion, no tenderness, supple, no stridor. [] Cardiovascular:Heart rate regular rhythm, no murmur [] bedside monitor shows a normal sinus rhythm. Lungs & Thorax: Bilateral breath sounds equal apex with scattered wheezes. Does have basilar crackles on right. Abdomen: Bowel sounds normal, soft, no tenderness, no masses, no pulsatile masses. Old surgical scar Skin: Warm, dry, no erythema, no rash. Tattoos Back: Mid T12 and L1 tenderness, mild CVA tenderness on right. Pain is exacerbated by deep cough or deep breaths. Extremities: No tenderness, no cyanosis, no clubbing, ROM intact, no edema. No cording appreciated Neurologic: Alert and oriented X 3, normal motor function, normal sensory function, no focal deficits noted. [] Psychologic: Affect anxious, judgement normal, mood normal. [] EKG: EKG: [] Radiology/Procedures: Radiology/Procedures: [[address] [address] IMAGING REPORT Signed PATIENT: UCHE MAN ACCOUNT: [id number] : 1985 LOCATION: ER AGE: 35 SEX: F EXAM STATUS: REG ER ORD. PHYSICIAN: LINK MONTOYA MD REASON: coughing PROCEDURE: CHEST PA & LATERAL EXAM: PA and Lateral Views of the Chest DATE: 07/19/2021 11:39 PM INDICATION: coughing COMPARISON: 02/16/2021 FINDINGS: The heart is not enlarged. Mediastinal and hilar contours are normal. Patchy opacities medial right lung base. No pleural effusion or pneumothorax. IMPRESSION: 1. Patchy opacities medial right lung base likely consolidative process such as pneumonia. Electronically signed by: Jay Odom MD (07/20/2021 12:24 AM) [facility] DICTATED AND SIGNED BY: JAY ODOM MD DATE: 07/20/21 0024 CC: LINK MONTOYA MD; CHLOE PEREZ ~MTH0 0 ][address] [address] IMAGING REPORT Signed PATIENT: UCHE MAN ACCOUNT: [id number] : 1985 LOCATION: ER AGE: 35 SEX: F EXAM STATUS: REG ER ORD. PHYSICIAN: LINK MONTOYA MD REASON: Severe Lt flank pain. PROCEDURE: CT ABDOMEN PELVIS WO CONTRAST EXAM: CT Abdomen and Pelvis without IV contrast CLINICAL HISTORY: Reason: Lt flank pain and LS pain T/12 - L1 area / Spl. Instructions: / History: . COMPARISON: none TECHNIQUE: Helical CT of the abdomen and pelvis without intravenous contrast. Axial, coronal and sagittal reformatted images were generated. PQRS compliance statement - One or more of the following individualized dose reduction techniques were utilized for this study: 1. Automated exposure control 2. Adjustment of the mA and/or kV according to patient size 3. Use of iterative reconstruction technique FINDINGS: Lack of intravenous contrast limits evaluation of solid organs, vasculature, and lymph nodes. Lower chest: Lung bases are clear. Abdomen and Pelvis: Liver, spleen, adrenal glands, pancreas are unremarkable. Accounting for postcho lecystectomy change, no biliary ductal dilatation. No focal renal lesion. No hydronephrosis. No hydroureter. Bladder is unremar kable. Uterus and adnexa are unremarkable. Appendix is normal. Moderate colonic stool content is seen. No small or large bowel dilatation. No bowel obstruction. Trace fat-containing periumbilical hernia is seen. No abdominal or pelvic ascites. No abdominal or pelvic lymphadenopathy. Changes of prior ventral abdominal hernia mesh repair are seen. Bones: No aggressive osseous lesion is seen. IMPRESSION: No renal tract calculus. No focal renal lesion. No hydronephrosis or hydroureter. EXAM: CT lumbar spine without IV contrast CLINICAL HISTORY:Reason: Lt flank pain and LS pain T/12 - L1 area / Spl. Instructions: / History: COMPARISON: None available. TECHNIQUE: Helical CT was performed through the lumbar spine. Axial, coronal and sagittal reformatted images were generated. PQRS compliance statement - One or more of the following individualized dose reduction techniques were utilized for this study: 1. Automated exposure control 2. Adjustment of the mA and/or kV according to patient size 3. Use of iterative reconstruction technique FINDINGS: There is normal alignment of the lumbar spine. There is preservation of height of the vertebral bodies with normal bone density. No acute fracture. The height of the intervertebral discs is maintained. IMPRESSION: 1. Negative acute fracture or subluxation. Electronically signed by: Jay Odom MD (07/20/2021 12:31 AM) [facility] DICTATED AND SIGNED BY: JAY ODOM MD DATE: 07/20/21 0025 CC: LINK MONTOYA MD; CHLOE PEREZ ~MTH0 0 Heart Score: C/O Chest Pain: N/A Risk Factors: Risk Factors: DM, Current or recent (<one month) smoker, HTN, HLP, family history of CAD, obesity. Risk Scores: Score 0 - 3: 2.5% MACE over next 6 weeks - Discharge Home Score 4 - 6: 20.3% MACE over next 6 weeks - Admit for Clinical Observation Score 7 - 10: 72.7% MACE over next 6 weeks - Early Invasive Strategies Course & Med Decision Making: Course & Med Decision Making Pertinent Labs and Imaging studies reviewed. (See chart for details) Avoid smoking. Practice deep breathing. Use MDI 2 puffs 4 times a day. Take Zithromax 250 daily.x 5 days. Follow-up pending Covid testing. Return if any concerns. Follow-up primary care. Impression: 1. Back Pain 2. Atypical Basilar Uphfciimd-ranwa-larxe 3. Marijuana and Tobacco use. [] Dragon Disclaimer: Dragon Disclaimer: This electronic medical record was generated, in whole or in part, using a voice recognition dictation system. Departure Departure: Referrals: CHLOE PEREZ (PCP) Scripts Azithromycin (ZITHROMAX) 250 Mg Tablet 250 MG PO DAILY for ANTI-BIOTIC, #5 TAB 0 Refills Prov: LINK MONTOYA MD 07/20/21 [place] Disclaimer This chart was dictated in whole or in part using Voice Recognition software in a busy, high-work load, and often noisy Emergency Department environment. It may contain unintended and wholly unrecognized errors or omissions. LINK MONTOYA MD Jul 19, 2021 22:28
[2021-07-19 23:09] LABS: BARBITURATES NEG (NEG); BENZODIAZEPINES NEG (NEG); CANNABINOIDS POS (NEG); COCAINE NEG (NEG); METHADONE NEG (NEG); OPIATES NEG (NEG); PHENCYCLIDINE NEG (NEG)
[2021-07-19 23:10] LABS: AMPHETAMINE/METHAMPHETAMINE NEG (NEG)
[2021-07-19 23:12] LABS: BILIRUBIN,URINE NEG (NEG); CLARITY,URINE CLEAR; COLOR,URINE YELLOW; GLUCOSE,URINE NEG (NEG)
[2021-07-19 23:13] LABS: BACTERIA,URINE 0 /HPF (0-FEW); NITRITE,URINE NEG (NEG); RBC,URINE 0 /HPF (0-2); SQUAMOUS EPITHELIAL CELL,UR MOD /LPF; TRICHOMONAS,URINE PRESENT; UROBILINOGEN,URINE 0.2 mg/dL (0.2 mg/dL); WBC,URINE OCC /HPF (0-4)
[2021-07-19] MEDS ORDERED: ORPHENADRINE CITRATE 60 MG/2 ML VIAL. IM ONE (23:45)
[2021-07-19] MEDS ORDERED: KETOROLAC 60 MG/2 ML VIAL. IM ONE (23:45)
[2021-07-20 00:19] LABS: U PREG PATIENT NEGATIVE (NEG)
--- NOTE | 2021-07-20 00:26 | RAD ---
EXAM: PA and Lateral Views of the Chest DATE: 07/19/2021 11:39 PM INDICATION: coughing COMPARISON: 02/16/2021 FINDINGS: The heart is not enlarged. Mediastinal and hilar contours are normal. Patchy opacities medial right lung base. No pleural effusion or pneumothorax. IMPRESSION: 1. Patchy opacities medial right lung base likely consolidative process such as pneumonia. Electronically signed by: Jay Villagomez MD (07/20/2021 12:24 AM) CHIN
--- NOTE | 2021-07-20 00:33 | RAD ---
EXAM: CT Abdomen and Pelvis without IV contrast CLINICAL HISTORY: Reason: Lt flank pain and LS pain T/12 - L1 area / Spl. Instructions: / History: . COMPARISON: none TECHNIQUE: Helical CT of the abdomen and pelvis without intravenous contrast. Axial, coronal and sagi ttal reformatted images were generated. PQRS compliance statement - One or more of the following individualized dose reduction techniques wer e utilized for this study: 1. Automated exposure control 2. Adjustment of the mA and/or kV according to patient size 3. Use of iterative reconstruction technique FINDINGS: Lack of intravenous contrast limits evaluation of solid organs, vasculature, and lymph nodes. Lower chest: Lung bases are clear. Abdomen and Pelvis: Liver, spleen, adrenal glands, pancreas are unremarkable. Accounting for postcholecystectomy change, no biliary ductal dilatation. No focal renal lesion. No hydronephrosis. No hydroureter. Bladder is unremarkable. Uterus and adnexa are unremarkable. Appendix is normal. Moderate colonic stool content is seen. No small or large bowel dilatation. No vivienne wel obstruction. Trace fat-containing periumbilical hernia is seen. No abdominal or pelvic ascites. No abdominal or pelvic lymphadenopathy. Changes of prior ventral abdo dony hernia mesh repair are seen. Bones: No aggressive osseous lesion is seen. IMPRESSION: No renal tract calculus. No focal renal lesion. No hydronephrosis or hydroureter. EXAM: CT lumbar spine without IV contrast CLINICAL HISTORY:Reason: Lt flank pain and LS pain T/12 - L1 area / Spl. Instructions: / History: COMPARISON: None available. TECHNIQUE: Helical CT was performed through the lumbar spine. Axial, coronal and sagittal reformatted images were generated. PQRS compliance statement - One or more of the following individualized dose reduction techniques wer e utilized for this study: 1. Automated exposure control 2. Adjustment of the mA and/or kV according to patient size 3. Use of iterative reconstruction technique FINDINGS: There is normal alignment of the lumbar spine. There is preservation of height of the vertebral bodies with normal bone density. No acute fracture. The height of the intervertebral discs is maintained. IMPRESSION: 1. Negative acute fracture or subluxation. Electronically signed by: Jay Villagomez MD (07/20/2021 12:31 AM) CHIN
[2021-07-20] MEDS ORDERED: AZIT250T PO (00:54)
[2021-07-20] MEDS ORDERED: AZITHROMYCIN 250 MG TABLET. PO ONE (01:00)
[2021-07-20] MEDS ORDERED: ALBUTEROL SULFATE 8GM INHALER. INH ONE (01:00)
[2021-07-20] MEDS ORDERED: cefTRIAXone IM 1 GM VIAL IM ONE (01:00)
[2021-07-20 02:30] VITALS: BP 136/70
== END 2021-07-20 02:38 | disposition home or self-care (01) ==
LOC: ER 22:00
DX: J18.9 Pneumonia, unspecified organism (principal); M54.6 Pain in thoracic spine; M54.59 Other low back pain; F10.20 Alcohol dependence, uncomplicated; F41.9 Anxiety disorder, unspecified; M19.90 Unspecified osteoarthritis, unspecified site; F31.9 Bipolar disorder, unspecified; J44.9 Chronic obstructive pulmonary disease, unspecified; G89.29 Other chronic pain; Y90.0 Blood alcohol level of less than 20 mg/100 ml
CPT/HCPCS: 36415; 71046; 72131; 74176; 80307; 81001; 81025; 87426; 94640; 96372; 99285; C9803; J0696; J1885; J2360; U0003; 94664

== ENCOUNTER 2021-09-28 09:19 | Emergency (ER) | payer OTHER ==
[~2021-09-28] VITALS: Ht 162.6 cm; Wt 113.6 kg
[~2021-09-28 09:19] MED LIST changes: +AZIT250T PO
--- NOTE | 2021-09-28 10:19 | RAD ---
XR CHEST 2V History: Reason: cough / Spl. Instructions: / History: Comparison: July 19, 2021 Findings: No consolidation or pleural effusion. Unchanged heart size. No pneumothorax. Impression: 1. No acute cardiopulmonary process. Electronically signed by: Robert Arnold DO (09/28/2021 10:17 AM) [id number]
[2021-09-28] MEDS: BENZONATATE 100 MG CAPSULE. PO ONE (10:37)
--- NOTE | 2021-09-28 10:39 | PHYS DOC ---
Past History Past Medical History: Alcoholism, Anxiety, Arthritis, Bipolar, Depression, Sciatica, Other Additional Past Medical Histor: PTSD, MULTIPLE PERSONALITY DISORDER , borderline personality Past Surgical History: Cholecystectomy, Tubal ligation, Other Additional Past Surgical Histo: hernia repair Alcohol Use: Occasionally Drug Use: Marijuana General Adult EDM: Chief Complaint: COUGH HPI: HPI: Patient is a 35-year-old female coming in for a few days of cough, central chest pain, shortness of breath, and wheezing. Patient is unsure if she has had any fevers. Says the cough is nonproductive. Says she had pneumonia a couple of months ago and he completely recovered. Has not been vaccinated against influenza or Covid. Smokes 0.5 PPD Review of Systems: Review of Systems: All other systems within normal limits except for as noted in the HPI Current Medications: Current Meds: Current Medications Medications (Trade) Dose Ordered Sig/Pantera Start Time Stop Time Status Last Admin Dose Admin Benzonatate (Tessalon Perle) 100 mg 1X ONCE 09/28/21 10:15 09/28/21 10:16 DC 09/28/21 10:37 100 MG Allergies: Allergies: Allergies Coded Allergies Type Severity Reaction Last Updated Verified No Known Drug Allergies 09/28/21 No Physical Exam: PE: Constitutional: Well developed, well nourished, no acute distress, non-toxic appearance. [] HENT: Normocephalic, atraumatic, bilateral external ears normal, nose normal. [] Eyes: PERRLA, conjunctiva normal, no discharge. [] Neck: No rigidity, supple, no stridor. [] Cardiovascular: Regular rate and rhythm, brisk cap refill [] Lungs & Thorax: Non labored symmetric respirations, no tachypnea or respiratory distress. Bilateral wheezes [] Abdomen: Soft, nondistended. Skin: Warm, dry, no erythema, no rash. [] Back: Unremarkable Extremities: No deformities, range of motion grossly intact, no lower extremity edema [] Neurologic: Alert and oriented X 3, no focal deficits noted. [] Psychologic: Affect normal, judgement normal, mood normal. [] Current Patient Data: Vital Signs: Vital Signs Date Time Temp Pulse Resp B/P (MAP) Pulse Ox O2 Delivery O2 Flow Rate FiO2 09/28/21 09:33 98.5 83 18 125/81 (96) 96 Room Air EKG: EKG: [] Radiology/Procedures: Radiology/Procedures: [address] [address] IMAGING REPORT Signed PATIENT: UCHE MAN ACCOUNT: [id number] : 1985 LOCATION: ER AGE: 35 SEX: F EXAM STATUS: REG ER ORD. PHYSICIAN: ROSHNI WOODWARD MD REASON: cough PROCEDURE: CHEST PA & LATERAL XR CHEST 2V History: Reason: cough / Spl. Instructions: / History: Comparison: July 19, 2021 Findings: No consolidation or pleural effusion. Unchanged heart size. No pneumothorax. Impression: 1. No acute cardiopulmonary process. Electronically signed by: Robert Arnold DO (09/28/2021 10:17 AM) [id number] DICTATED AND SIGNED BY: ROBERT ARNOLD DO DATE: 09/28/21 1016 CC: ROSHNI WOODWARD MD; CHLOE WALSH ~ [] Heart Score: C/O Chest Pain: N/A HEART Score for Chest Pain: HEART Score for Chest Pain Response (Comments) Value History Slighlty/Non-Suspicious 0 Age < 45 0 Risk Factors 1 or 2 Risk Factors 1 Troponin < Normal Limit 0 Total 1 Risk Factors: Risk Factors: DM, Current or recent (<one month) smoker, HTN, HLP, family history of CAD, obesity. Risk Scores: Score 0 - 3: 2.5% MACE over next 6 weeks - Discharge Home Score 4 - 6: 20.3% MACE over next 6 weeks - Admit for Clinical Observation Score 7 - 10: 72.7% MACE over next 6 weeks - Early Invasive Strategies Course & Med Decision Making: Course & Med Decision Making Pertinent Labs and Imaging studies reviewed. (See chart for details) [] Dragon Disclaimer: Dragon Disclaimer: This electronic medical record was generated, in whole or in part, using a voice recognition dictation system. Departure Departure: Impression: Primary Impression: Bronchitis Additional Impression: Person under investigation for COVID-19 Disposition: HOME / SELF CARE / HOMELESS Condition: STABLE Referrals: CHLOE WALSH (PCP) Patient Instructions: Acute Bronchitis Scripts Benzonatate (BENZONATATE) 200 Mg Capsule 1 CAP PO PRN TID PRN for cough for 7 Days, #21 CAP 0 Refills Prov: ROSHNI WOODWARD MD 09/28/21 Acetaminophen With Codeine (ACETAMINOPHEN-COD #3 TABLET) 1 Each Tablet 1 TAB PO PRN Q6HRS PRN for COUGH for 3 Days, #10 TAB Prov: ROSHNI WOODWARD MD 09/28/21 Prednisone (PREDNISONE) 50 Mg Tablet 1 TAB PO DAILY for steroid for 5 Days, #5 TAB Prov: ROSHNI WOODWARD MD 09/28/21 Azithromycin (AZITHROMYCIN TABLET) 250 Mg Tablet 1 PKG PO UD for antibiotic for 5 Days, #6 TAB 0 Refills 2 the first day followed by 1 for days 2-5 Prov: ROSHNI WOODWARD MD 09/28/21 ROSHNI WOODWARD MD Sep 28, 2021 10:39
[2021-09-28 11:11] LABS: BASO # 0.1 x10^3/uL (0.0-0.2); BASO % 1 % (0-3); EOS # 0.2 x10^3/uL (0.0-0.7); EOS % 4 % (0-3); HEMATOCRIT 39.5 % (36.0-47.0); HEMOGLOBIN 12.7 g/dL (12.0-15.5); LYMPH # 1.7 x10^3/uL (1.0-4.8); LYMPH % 28 % (24-48); MEAN CORPUSCULAR HEMOGLOBIN 28 pg (25-35); MEAN CORPUSCULAR HGB CONC 32 g/dL (31-37); MEAN CORPUSCULAR VOLUME 86 fL (79-100); MONO # 0.6 x10^3/uL (0.0-1.1); MONO % 10 % (0-9); NEUT # 3.6 x10^3uL (1.8-7.7); NEUT % 57 % (31-73); PLATELET COUNT 253 x10^3/uL (140-400); RED BLOOD COUNT 4.61 x10^6/uL (3.50-5.40); RED CELL DISTRIBUTION WIDTH 14.7 % (11.5-14.5); WHITE BLOOD COUNT 6.3 x10^3/uL (4.0-11.0)
[2021-09-28 11:19] LABS: CALCIUM 8.3 mg/dL (8.5-10.1); CREATININE 0.6 mg/dL (0.6-1.0); GFR 113.8; POTASSIUM 4.2 mmol/L (3.5-5.1)
[2021-09-28 11:23] LABS: INFLUENZA A PATIENT NEGATIVE (NEGATIVE); INFLUENZA B PATIENT NEGATIVE (NEGATIVE)
[2021-09-28 11:25] LABS: ALBUMIN 3.4 g/dL (3.4-5.0); TOTAL BILIRUBIN 0.2 mg/dL (0.2-1.0); TOTAL PROTEIN 6.9 g/dL (6.4-8.2)
[2021-09-28] MEDS: ACETAMINOPHEN 500 MG TABLET PO ONE (11:37)
[2021-09-28] MEDS: ALBUTEROL SULFATE 8GM INHALER. INH ONE (11:37)
[2021-09-28 12:00] VITALS: BP 146/85
[2021-09-28] MEDS ORDERED: BENZ200C47 PO (12:00)
[2021-09-28] MEDS ORDERED: PRED50TA PO (12:00)
[2021-09-28] MEDS ORDERED: AZIT250T6 PO (12:00)
[2021-09-28] MEDS ORDERED: ACET1TAB33 PO (12:00)
[2021-09-28 12:03] LABS: BACTERIA,URINE FEW /HPF (0-FEW); CLARITY,URINE CLEAR; COLOR,URINE YELLOW; GLUCOSE,URINE NEG (NEG); NITRITE,URINE NEG (NEG); RBC,URINE 0 /HPF (0-2); SQUAMOUS EPITHELIAL CELL,UR MANY /LPF; UROBILINOGEN,URINE 0.2 mg/dL (0.2 mg/dL); WBC,URINE 0 /HPF (0-4)
== END 2021-09-28 12:01 | disposition home or self-care (01) ==
LOC: ER 09:19
DX: J40 Bronchitis, not specified as acute or chronic (principal); F10.20 Alcohol dependence, uncomplicated; F41.9 Anxiety disorder, unspecified; M19.90 Unspecified osteoarthritis, unspecified site; F31.9 Bipolar disorder, unspecified; Z20.822 Contact with and (suspected) exposure to COVID-19; Y90.9 Presence of alcohol in blood, level not specified
CPT/HCPCS: 71046; 80053; 81001; 81025; 84484; 85025; 87428; 94640; 99285; C9803; U0003; 94664